=== PATIENT | male | born 1980 | race Caucasian/White ===

== ENCOUNTER 2017-12-16 03:09 | Inpatient (IN) | payer MEDICARE ==
[2017-12-16 03:42] LABS: HEMOGLOBIN 12.8 gm/dL (12-16); RED BLOOD COUNT 4.46 Mil/cmm (4.30-5.70)
[2017-12-16 03:48] LABS: HEMATOCRIT 37.6 % (41.0-60); MEAN CELL VOLUME 84.4 fl (80-99); MEAN CORPUSCULAR HEMOGLOBIN 28.7 pg (26.0-30.0); MEAN PLATELET VOLUME 7.4 fl; PLATELET COUNT 73 Th/cmm (150-400); RED CELL DISTRIBUTION WIDTH 22.8 % (11.5-20.0)
[2017-12-16 03:55] LABS: WHITE BLOOD COUNT 2.4 Th/cmm (4.8-10.8)
[2017-12-16 04:00] LABS: ALB/GLOB RATIO 0.8 (1.0-1.8); ALBUMIN 3.1 gm/dL (4.2-5.5); ALKALINE PHOSPHATASE 103 U/L (34-104); AMYLASE SERUM 78 U/L (29-103); BILIRUBIN,TOTAL 3.8 mg/dL (0.3-1.0); BUN - UREA NITROGEN 4 mg/dL (7-25); CALCIUM SERUM 8.5 mg/dL (8.6-10.3); CHLORIDE 102 mEq/L (98-107); GLUCOSE 121 mg/dL (70-105); LIPASE 92 U/L (11-82); POTASSIUM SERUM 3.8 mEq/L (3.5-5.1); SGOT 88 U/L (13-39); SGPT/ALT 47 U/L (7-52); SODIUM SERUM 133 mEq/L (136-145); TOTAL PROTEIN,SERUM 7.1 gm/dL (6.0-8.3)
[2017-12-16 04:02] LABS: URINE SOURCE RANDOM
[2017-12-16 04:24] LABS: URINE BILIRUBIN NEGATIVE (NEGATIVE); URINE BLOOD NEGATIVE (NEGATIVE); URINE GLUCOSE (UA) NEGATIVE (NEGATIVE); URINE KETONE NEGATIVE (NEGATIVE); URINE LEUKOCYTE ESTERASE NEGATIVE (NEGATIVE); URINE NITRATE NEGATIVE (NEGATIVE); URINE PH 6.5 (4.6 - 8.0); URINE PROTEIN NEGATIVE (NEGATIVE); URINE UROBILINOGEN 0.2 E.U./dL (0.2 - 1.0)
[2017-12-16 04:29] LABS: URINE CLARITY CLEAR (CLEAR); URINE COLOR YELLOW; URINE MICROSCOPIC INDICATED? NO
[2017-12-16 04:35] LABS: AMPHETAMINE URINE NEGATIVE (NEGATIVE); BARBITURATES URINE NEGATIVE (NEGATIVE); BENZODIAZEPINES QUAL URINE POSITIVE (NEGATIVE); CANNABINOID THC NEGATIVE (NEGATIVE); COCAINE METABOLITE QUAL URINE NEGATIVE (NEGATIVE); METHADONE URINE NEGATIVE (NEGATIVE); METHAMPHETAMINES QUAL URINE NEGATIVE (NEGATIVE); OPIATES (MORPHINE) QUAL. URINE NEGATIVE (NEGATIVE); PHENCYCLIDINE (PCP) URINE NEGATIVE (NEGATIVE); TRICYCLICS (TCA) QUAL. URINE NEGATIVE (NEGATIVE)
[2017-12-16 04:57] LABS: BAND NEUTROPHILE 1 % (0-10); NEUTROPHILS 60 % (40-80)
[2017-12-16 04:58] LABS: LYMPHOCYTE 25 % (20-50); MONOCYTE 14 % (2-10); OVALOCYTES 1+; PLATELET ESTIMATE DECREASED PLATELETS (NORMAL)
[2017-12-16 05:11] LABS: ANION GAP 9.2 (7.0-16.0); CARBON DIOXIDE 25.6 mEq/L (21.0-31.0); CREATININE - SERUM 0.7 mg/dL (0.7-1.3); GFR AFRICAN-AMERICAN > 60.0 ml/min (>90); GFR NON AFRICAN-AMERICAN > 60.0 ml/min
--- NOTE | 2017-12-16 06:57 | ED Physician Chart ---
ED Chief Complaint/HPI - Patient Information Date Seen:: 12/16/17 Time Seen:: 03:32 Chief Complaint:: abd pain History of Present Illness:: 37 yr old male with hep c liver dz homeless here for abd pain no vomiting diarhea or sepsis Allergies:: Allergies Allergy/AdvReac Type Severity Reaction Status Date / Time No Known Allergies Allergy Verified 12/16/17 03:21 Vitals:: Vital Signs - 8 hr 12/16/17 12/16/17 03:10 06:35 Temp 97.5 F HR 91 97 RR 16 16 BP 110/69 111/73 O2 Sat % 98 99 ED Review of Systems - Review of Systems General/Constitutional: No fever, No chills, No weight loss, No weakness, No diaphoresis, No edema, No loss of appetite Skin: No skin lesions, No rash, No bruising Head: No headache, No light-headedness Eyes: No loss of vision, No pain, No diplopia ENT: No earache, No nasal drainage, No sore throat, No tinnitus Neck: No neck pain, No swelling, No thyromegaly, No stiffness, No mass noted Cardio Vascular: No chest pain, No palpitations, No PND, No orthopnea, No edema Pulmonary: No SOB, No cough, No sputum, No wheezing GI: No nausea, No vomiting, No diarrhea, No pain, No melena, No hematochezia, No constipation, No hematemesis G/U: No dysuria, No frequency, No hematuria Musculoskeletal: No bone or joint pain, No back pain, No muscle pain Endocrine: No polyuria, No polydipsia Psychiatric: No prior psych history, No depression, No anxiety, No suicidal ideation Hematopoietic: No bruising, No lymphadenopathy Allergic/Immuno: No urticaria, No angioedema Neurological: No syncope, No focal symptoms, No weakness, No paresthesia, No headache, No seizure, No dizziness, No confusion, No vertigo ED Past Medical History - Past Medical History Past Medical History: Other (hep c liver dz) Family Medical History - Family Member Mother History Unknown: Yes ED Physical Exam - Physical Examination General/Constitutional: Awake, Well-developed, well-nourished, Alert, No distress, GCS 15, Non-toxic appearing, Ambulatory Head: Atraumatic Eyes: Lids, conjuctiva normal, PERRL, EOMI Skin: Nl inspection, No rash, No skin lesions, No ecchymosis, Well hydrated, No lymphadenopathy ENMT: External ears, nose nl, Nasal exam nl, Lips, teeth, gums nl Neck: Nontender, Full ROM w/o pain, No JVD, No nuchal rigidity, No bruit, No mass, No stridor Respiratory: Nl effort/Exclusion, Clear to Auscultation, No Wheeze/Rhonchi/Rales Cardio Vascular: RRR, No murmur, gallop, rubs, NL S1 S2 GI: No tenderness/rebounding/guarding, No organomegaly, No hernia, Normal BS's, Nondistended, No mass/bruits, No McBurney tenderness : No CVA tenderness Extremities: No tenderness or effusion, Full ROM, normal strength in all extremities, No edema, Normal digits & nails Neuro/Psych: Alert/oriented, DTR's symmetric, Normal sensory exam, Normal motor strength, Judgement/insight normal, Mood normal, Normal gait, No focal deficits Misc: Normal back, No paraspinal tenderness ED Labs/Radiology/EKG Results - Lab Results Results: Laboratory Tests 12/16/17 12/16/17 12/16/17 03:32 03:32 03:35 WBC 2.4 L* RBC 4.46 Hgb 12.8 Hct 37.6 L MCV 84.4 MCH 28.7 MCHC Differential 34.0 RDW 22.8 H Plt Count 73 L MPV 7.4 Add Manual Diff YES Band Neutrophils % 1 Neutrophils (Manual) 60 Lymphocytes 25 Monocytes 14 H Platelet Estimate DECREASED PLATELETS Ovalocytes 1+ Sodium Potassium Chloride Carbon Dioxide Anion Gap BUN Creatinine Est GFR ( Amer) Est GFR (Non-Af Amer) BUN/Creatinine Ratio Glucose Whole Bld Lactic Acid Calcium Total Bilirubin AST ALT Alkaline Phosphatase Total Protein Albumin Globulin Albumin/Globulin Ratio Amylase Lipase Urine Source RANDOM Urine Color YELLOW Urine Clarity CLEAR Urine pH 6.5 Ur Specific [place] 1.010 Urine Protein NEGATIVE Urine Glucose (UA) NEGATIVE Urine Ketones NEGATIVE Urine Blood NEGATIVE Urine Nitrate NEGATIVE Urine Bilirubin NEGATIVE Urine Urobilinogen 0.2 Ur Leukocyte Esterase NEGATIVE Urine Opiates Screen NEGATIVE Urine Methadone Screen NEGATIVE Ur Barbiturates Screen NEGATIVE Ur Tricyclics Screen NEGATIVE Ur Phencyclidine Scrn NEGATIVE Amphetamines Screen NEGATIVE U Methamphetamines Scrn NEGATIVE U Benzodiazepines Scrn POSITIVE H U Cocaine Metab Screen NEGATIVE U Cannabinoids Screen NEGATIVE 12/16/17 12/16/17 03:35 04:05 WBC RBC Hgb Hct MCV MCH MCHC Differential RDW Plt Count MPV Add Manual Diff Band Neutrophils % Neutrophils (Manual) Lymphocytes Monocytes Platelet Estimate Ovalocytes Sodium 133 L Potassium 3.8 Chloride 102 Carbon Dioxide 25.6 Anion Gap 9.2 BUN 4 L Creatinine 0.7 Est GFR ( Amer) > 60.0 Est GFR (Non-Af Amer) > 60.0 BUN/Creatinine Ratio 5.7 Glucose 121 H Whole Bld Lactic Acid 1.81 Calcium 8.5 L Total Bilirubin 3.8 H AST 88 H ALT 47 Alkaline Phosphatase 103 Total Protein 7.1 Albumin 3.1 L Globulin 4.0 Albumin/Globulin Ratio 0.8 L Amylase 78 Lipase 92 H Urine Source Urine Color Urine Clarity Urine pH Ur Specific [place] Urine Protein Urine Glucose (UA) Urine Ketones Urine Blood Urine Nitrate Urine Bilirubin Urine Urobilinogen Ur Leukocyte Esterase Urine Opiates Screen Urine Methadone Screen Ur Barbiturates Screen Ur Tricyclics Screen Ur Phencyclidine Scrn Amphetamines Screen U Methamphetamines Scrn U Benzodiazepines Scrn U Cocaine Metab Screen U Cannabinoids Screen ED Assessment - Assessment General Assessment: abd pain hep c liver dz abd pain pancytopenia ED Septic Shock - . Is Septic Shock (SBP<90, OR Lactate>4 mmol\L) present?: No - <6hrs of presentation: Vital Signs: Vital Signs - 8 hr 12/16/17 12/16/17 03:10 06:35 Temp 97.5 F HR 91 97 RR 16 16 BP 110/69 111/73 O2 Sat % 98 99 ED Reassessment (Disposition) - Diagnosis Diagnosis:: pancytopenia hep c liver dz abd pain - Patient Disposition Discharge/Transfer:: Acute Care w/in this hosp Admitted to:: Med/Surg Condition at Disposition:: Stable
--- NOTE | 2017-12-16 10:25 | Diagnostic Imaging Report ---
CT abdomen and pelvis without intravenous contrast Indication: Abdominal pain Comparison: None, Technique: Axial images were obtained from the lung bases to the bilateral proximal femurs without IV contrast. Coronal reconstructions were made. total DLP: 631, CTDI10.8 FINDINGS: There is a moderate size right effusion right basal passive atelectatic and consolidative changes. Assessment of the solid organs is limited due to lack of IV contrast. There is cirrhotic appearing liver with diffuse fatty infiltration. No obvious focal lesions. No radiopaque gallstones. Splenomegaly is noted measuring up to 20 cm. There may be prominent varices along the perisplenic lesions. Limited assessment of the pancreas demonstrates no obvious focal lesions. The adrenal glands are poorly visualized on this exam. 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 No hydronephrosis or evidence of renal stones. There is a small fat-containing umbilical hernia. Mesenteric edema and trace fluid is seen within the abdomen and pelvis with gas-filled loops of bowel. The appendix is not visualized and may have been removed. No evidence of free abdominal air. There is a subcutaneous nodule along the infraumbilical region at the midline measuring 2.7 x 2.5 cm. The osseous structures demonstrate no acute abnormalities. Small hiatal hernia is noted. There is mild gynecomastia. IMPRESSION: Cirrhotic appearing liver with fatty infiltration and splenomegaly. There are also probable splenic varices. Please correlate with patient's clinical findings and possible portal hypertension. Edema throughout the mesentery extending to the pelvic fat planes with trace free fluid. This may be sequela patient's hepatocellular disease or other inflammatory processes. Please correlate clinically. Small hiatal hernia. 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 No hydronephrosis or renal stones. Moderate right effusion right basal passive atelectasis and infiltrates. Small fat-containing umbilical hernia. 2.7 x 2.5 cm nodule along the subcutaneous tissues inferior to the umbilicus,etiology uncertain but may represent postinflammatory process. Mild gynecomastia noted.
== END 2017-12-16 09:50 | disposition left against medical advice (07) | DRG 813 ==
LOC: ER 03:09 → MSI 07:15
PROVIDERS: ADMIT Internal Medicine; ATTEND Internal Medicine
DX: D69.6 Thrombocytopenia, unspecified (principal); J90 Pleural effusion, not elsewhere classified; K76.6 Portal hypertension; D72.819 Decreased white blood cell count, unspecified; B19.20 Unspecified viral hepatitis C without hepatic coma; R16.2 Hepatomegaly with splenomegaly, not elsewhere classified; K74.60 Unspecified cirrhosis of liver; Z59.0 Homelessness
CPT/HCPCS: 36415-UA; 80053-TC; 80307; 81003-TC; 82150-TC; 83605; 83690-TC; 85007-TC; 85025-TC; 86703-TC; 93005

== ENCOUNTER 2017-12-17 04:47 | Inpatient (IN) | payer MEDICARE ==
--- NOTE | 2017-12-17 06:44 | ED Physician Chart ---
ED Chief Complaint/HPI - Patient Information Date Seen:: 12/17/17 Time Seen:: 05:40 Chief Complaint:: diarhea History of Present Illness:: 37 yr old with hx of liver dz s/p diarhea smothered in diarhea homeless hx of drug and etoh abuse Allergies:: Allergies Allergy/AdvReac Type Severity Reaction Status Date / Time No Known Allergies Allergy Verified 12/17/17 04:54 Vitals:: Vital Signs - 8 hr 12/17/17 04:50 Temp 98.1 F HR 90 RR 18 BP 132/82 O2 Sat % 100 ED Review of Systems - Review of Systems General/Constitutional: No fever, No chills Skin: No skin lesions Head: No headache Eyes: No loss of vision ENT: No earache Neck: No neck pain Cardio Vascular: No chest pain Pulmonary: No SOB GI: No nausea, No vomiting, Diarrhea G/U: No dysuria Musculoskeletal: No bone or joint pain Endocrine: No polyuria Hematopoietic: No bruising Allergic/Immuno: No urticaria Neurological: No syncope Family Medical History - Family Member Mother History Unknown: Yes ED Septic Shock - . Is Septic Shock (SBP<90, OR Lactate>4 mmol\L) present?: No - <6hrs of presentation: Vital Signs: Vital Signs - 8 hr 12/17/17 04:50 Temp 98.1 F HR 90 RR 18 BP 132/82 O2 Sat % 100 ED Reassessment (Disposition) - Reassessment Reassessment:: diarhea - Aftercare/Follow up Instructions Aftercare/Follow-Up Instructions:: Counseled pt regarding lab results/diagnosis & need follow up - Patient Disposition Discharge/Transfer:: Home Condition at Disposition:: Stable
[2017-12-17 08:08] LABS: MEAN CORPUSCULAR HGB CONC 34.5 pg (28.0-36.0)
[2017-12-17 08:11] LABS: HEMATOCRIT 35.2 % (41.0-60); HEMOGLOBIN 12.2 gm/dL (12-16); MEAN CELL VOLUME 83.2 fl (80-99); MEAN CORPUSCULAR HEMOGLOBIN 28.7 pg (26.0-30.0); MEAN PLATELET VOLUME 6.8 fl; PLATELET COUNT 45 Th/cmm (150-400); RED BLOOD COUNT 4.23 Mil/cmm (4.30-5.70); RED CELL DISTRIBUTION WIDTH 23.4 % (11.5-20.0)
[2017-12-17 08:13] LABS: WHITE BLOOD COUNT 1.7 Th/cmm (4.8-10.8)
[2017-12-17 08:18] LABS: ALB/GLOB RATIO 0.8 (1.0-1.8); ALBUMIN 3.1 gm/dL (4.2-5.5); ALKALINE PHOSPHATASE 118 U/L (34-104); ANION GAP 13.4 (7.0-16.0); BILIRUBIN,TOTAL 3.6 mg/dL (0.3-1.0); BUN - UREA NITROGEN 6 mg/dL (7-25); CALCIUM SERUM 8.5 mg/dL (8.6-10.3); CARBON DIOXIDE 25.2 mEq/L (21.0-31.0); CHLORIDE 105 mEq/L (98-107); CREATININE - SERUM 0.5 mg/dL (0.7-1.3); GFR AFRICAN-AMERICAN > 60.0 ml/min (>90); GFR NON AFRICAN-AMERICAN > 60.0 ml/min; GLUCOSE 131 mg/dL (70-105); POTASSIUM SERUM 3.6 mEq/L (3.5-5.1); SGOT 188 U/L (13-39); SGPT/ALT 70 U/L (7-52); SODIUM SERUM 140 mEq/L (136-145)
[2017-12-17 08:55] LABS: BURR CELLS 1+; EOSINOPHIL 4 % (0-5); LYMPHOCYTE 16 % (20-50); MONOCYTE 12 % (2-10); NEUTROPHILS 68 % (40-80); OVALOCYTES 1+; PLATELET ESTIMATE DECREASED PLATELETS (NORMAL)
[2017-12-17] MEDS: metroNIDAZOLE 500mg/NS 100mL 500 MG/100 ML BAG IV SCH ×3 (09:53→17:01)
[2017-12-17] MEDS: Sodium Chloride 0.9% 1,000 ML IV SCH (09:54)
[2017-12-17] MEDS: Morphine Sulfate 2 mg/mL 1mL Syr IVP PRN ×3 (09:56→20:27)
[2017-12-17] MEDS ORDERED: Sodium Chloride 0.9% 2,000 ML IV ONE (10:27)
[2017-12-17 12:05] VITALS: BP 119/84
--- NOTE | 2017-12-17 13:48 | Consultation ---
Consult Note - Consult Note Service Date: 12/17/17 Referring Physician: Vinny Valentin Consult Note: PHYSICIAN Consultation Note: Date of Admission: 12/17/17 Purpose of Consultation: Diarrhea, acute gastroenteritis. Chief Complaint: Patient HEIDI TANG was admitted to location Medical/ Surgical Unit I with DIARRHEA. History of Present Illness: A past medical history of alcohol abuse presented to ER for her diarrhea. Diarrhea is improved. On initial evaluation, he was afebrile and WBC count was 1700. Past Medical History: Alcohol abuse, may have cirrhosis. Allergies Allergy/AdvReac Type Severity Reaction Status Date / Time No Known Allergies Allergy Verified 12/17/17 04:54 Vital Signs Temp 96.4 F 12/17/17 11:44 Pulse 98 12/17/17 11:44 Resp 18 12/17/17 11:44 BP 119/84 12/17/17 12:05 Pulse Ox 98 12/17/17 11:44 Intake & Output 12/16/17 12/17/17 12/17/17 18:59 06:59 18:59 Intake Total 100 Balance 100 Weight (lbs) 95.708 kg 95.073 kg Intake: Intake, IV Amount 100 metroNIDAZOLE 500mg/NS 100 100mL 500 mg In 100 ml @ 100 mls/hr IV Q6HR [facility] Rx #:[id number] Other: Weight Source Patient stated Laboratory Results - last 24 hr 12/17/17 12/17/17 12/17/17 07:25 07:25 08:09 WBC 1.7 L* RBC 4.23 L Hgb 12.2 Hct 35.2 L MCV 83.2 MCH 28.7 MCHC Differential 34.5 RDW 23.4 H Plt Count 45 L MPV 6.8 Add Manual Diff YES Neutrophils (Manual) 68 Lymphocytes 16 L Monocytes 12 H Eosinophils 4 Platelet Estimate DECREASED PLATELETS Ovalocytes 1+ [place] Cells 1+ Sodium 140 Potassium 3.6 Chloride 105 Carbon Dioxide 25.2 Anion Gap 13.4 BUN 6 L Creatinine 0.5 L Est GFR ( Amer) > 60.0 Est GFR (Non-Af Amer) > 60.0 BUN/Creatinine Ratio 12.0 Glucose 131 H Whole Bld Lactic Acid Calcium 8.5 L Total Bilirubin 3.6 H AST 188 H ALT 70 H Alkaline Phosphatase 118 H Total Protein 7.0 Albumin 3.1 L Globulin 3.9 Albumin/Globulin Ratio 0.8 L HIV 1&2 Antibody Screen NEGATIVE 12/17/17 12/17/17 08:29 10:44 WBC RBC Hgb Hct MCV MCH MCHC Differential RDW Plt Count MPV Add Manual Diff Neutrophils (Manual) Lymphocytes Monocytes Eosinophils Platelet Estimate Ovalocytes [place] Cells Sodium Potassium Chloride Carbon Dioxide Anion Gap BUN Creatinine Est GFR ( Amer) Est GFR (Non-Af Amer) BUN/Creatinine Ratio Glucose Whole Bld Lactic Acid 2.01 H* 2.01 H* Calcium Total Bilirubin AST ALT Alkaline Phosphatase Total Protein Albumin Globulin Albumin/Globulin Ratio HIV 1&2 Antibody Screen Home Medication Medication Instructions Recorded Type NK [No Home Meds] 12/16/17 History Current Medications Generic Name Dose Route Start Last Admin Trade Name Freq PRN Reason Stop Dose Admin Metronidazole 500 mg in 100 mls @ 100 mls/hr 12/17/17 08:42 12/17/17 12:57 Flagyl IV 02/15/18 08:41 100 mls/hr Q6HR ERNESTINE Administration Sodium Chloride 1,000 mls @ 125 mls/hr 12/17/17 08:42 12/17/17 09:54 Nacl 0.9% IV 02/15/18 08:41 125 mls/hr .Q8H ERNESTINE Administration Morphine Sulfate 2 mg 12/17/17 08:42 12/17/17 09:56 Morphine IVP 02/15/18 08:41 2 mg Q4HR PRN Administration Pain (Moderate) Morphine Sulfate 4 mg 12/17/17 08:42 Morphine IVP 02/15/18 08:41 Q4H PRN Pain (Severe) Ondansetron HCl 4 mg 12/17/17 08:42 Zofran IV 02/15/18 08:41 Q6H PRN Nausea / Vomiting Review of Systems: A 12 point ROS was reviewed with the pertinent positive and negatives noted in the HPI. Social History Smoking Status Unknown if ever smoked Drug Use Yes Alcohol Use Yes Physical Exam: in diostress. HEENT: HEAD: NT ND. ORAL CAVITY: Moist, pink tongue EYES: Pallor is present. No icterus. Neck: Supple, no JVD. Cardio: S1 and S2 WNL. Respiratory: Vesicular breath sound no crackles no wheezing. Abdominal: Mildly distended bowel sounds present Genital/Urinary: Deferred. Extremities: No cyanosis, no clubbing no edema Neurological: Alert, awake, oriented 3. Assessment: 1. Pancytopenia most likely due to cirrhosis and splenomegaly 2. Hepatitis C. 3. Alcohol abuse.. Plan: Will continue same treatment. Ultrasound of the abdomen. Hepatitis A, B, and C serology. HIV screen. Thank you, Dr Valentin for involving me in taking care of this patient. Piyush Sanchez Devesh N., M.D. [id number]
--- NOTE | 2017-12-17 16:15 | History & Physical ---
ADMIT DATE: 12/17/2017 CHIEF COMPLAINT: Diarrhea. HISTORY OF PRESENT ILLNESS: This is a 37-year-old homeless male who has a history of diarrhea. The patient denies any fevers or chills. PAST MEDICAL HISTORY: Liver disease and hepatitis C. SOCIAL HISTORY: The patient is alcoholic and drug user. FAMILY HISTORY: Noncontributory. REVIEW OF SYSTEMS: GENERAL: Denies any fevers, any chills. Complains of weakness. CARDIOVASCULAR: Denies chest pain. RESPIRATORY: Denies shortness of breath. GASTROINTESTINAL: Denies nausea, vomiting or abdominal pain. GENITOURINARY: Denies increased frequency or dysuria. NEUROLOGIC: No headache, seizure or syncope. All systems are reviewed and negative. PHYSICAL EXAMINATION: GENERAL: A young male, appears disheveled, in no apparent distress. VITAL SIGNS: Temperature 96.4, heart rate 98, blood pressure 120/79, respirations 18 and O2 98%. HEENT: Head; normocephalic and atraumatic. NECK: Supple. No mass. LUNGS: Clear bilaterally. HEART: Regular rate and rhythm. ABDOMEN: Soft and nontender. LABORATORY DATA: WBC 1.7, H and H 12.2 and 35.2 and platelets 45. Sodium 140, potassium 3.6, chloride 105, BUN 6, creatinine 0.5 and whole lactic acid of 2.01. ASSESSMENT: Diarrhea, leukopenia, lactic acidosis, rule out sepsis, history of hepatitis C, liver disease, history of alcoholism and homelessness. PLAN: The patient to be admitted to the med-surg unit. Keep patient on empiric IV antibiotics. We will collect urine for urinalysis. IV fluids for hydration. We will get Hematology as well as ID consultation on the case. We will continue to monitor this patient. JOB# [id number]
--- NOTE | 2017-12-17 17:49 | History & Physical ---
ADMIT DATE: 12/17/2017 HEMATOLOGY ONCOLOGY CONSULTATION REFERRING PHYSICIAN: Dr. Valentin. REASON FOR CONSULTATION: Thrombocytopenia and leukopenia. HISTORY OF PRESENT ILLNESS: The patient is a 37-year-old homeless male with history of hepatitis C, liver cirrhosis and presented with diarrhea. He was found to have leukopenia and thrombocytopenia; therefore, I was asked to evaluate. PAST MEDICAL HISTORY: Liver cirrhosis secondary to hepatitis C. SOCIAL HISTORY: Alcoholic and drug user. MEDICATIONS: Reviewed. PHYSICAL EXAMINATION: GENERAL: The patient is awake, not in distress, poor hygiene, disheveled. HEENT: Atraumatic. NECK: No lymphadenopathy. CHEST: Equal air entry. ABDOMEN: Soft, distended with dilated veins in the abdominal wall and palpable splenomegaly. LABORATORY DATA: White count 1.7, hemoglobin 12.2, platelet count 45. Chemistry: Bilirubin 3.6. AST, ALT, alkaline phosphatase are all elevated. Creatinine 0.5, lipase 92, albumin 3.1. CT scan of the abdomen was reviewed showing splenomegaly at 20 cm and cirrhotic liver. ASSESSMENT: 1. 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 2. Liver cirrhosis secondary to hepatitis C. The patient is not neutropenic or febrile and will be monitored without Neupogen for now. I will obtain B12, folate level and add thiamine, multivitamin, and folate to his medications. Thank you Dr. Valentin for the opportunity to participate in the care of this interesting case. JOB# [id number]
[2017-12-17] MEDS ORDERED: Potassium Chloride 20 mEq ER Tab PO ONE (18:01)
[2017-12-17 18:15] LABS: AMPHETAMINE URINE NEGATIVE (NEGATIVE); BARBITURATES URINE NEGATIVE (NEGATIVE); BENZODIAZEPINES QUAL URINE POSITIVE (NEGATIVE); CANNABINOID THC NEGATIVE (NEGATIVE); COCAINE METABOLITE QUAL URINE NEGATIVE (NEGATIVE); METHADONE URINE NEGATIVE (NEGATIVE); METHAMPHETAMINES QUAL URINE NEGATIVE (NEGATIVE); OPIATES (MORPHINE) QUAL. URINE POSITIVE (NEGATIVE); PHENCYCLIDINE (PCP) URINE NEGATIVE (NEGATIVE); TRICYCLICS (TCA) QUAL. URINE NEGATIVE (NEGATIVE)
[2017-12-17 19:28] LABS: URINE SOURCE CLEAN C
[2017-12-17 19:32] LABS: URINE BILIRUBIN SMALL (NEGATIVE); URINE BLOOD NEGATIVE (NEGATIVE); URINE GLUCOSE (UA) NEGATIVE (NEGATIVE); URINE KETONE NEGATIVE (NEGATIVE); URINE LEUKOCYTE ESTERASE NEGATIVE (NEGATIVE); URINE MICROSCOPIC INDICATED? YES; URINE NITRATE POSITIVE (NEGATIVE); URINE PROTEIN NEGATIVE (NEGATIVE); URINE UROBILINOGEN 0.2 E.U./dL (0.2 - 1.0)
[2017-12-17 19:36] LABS: URINE CLARITY CLEAR (CLEAR); URINE COLOR YELLOW
[2017-12-17 19:38] LABS: URINE AMORPHOUS SEDIMENT FEW PHOSPHATES (NONE SEEN); URINE BACTERIA 2+ /hpf (NONE SEEN); URINE EPITHELIAL CELLS FEW /lpf (FEW); URINE RBC 0-2 /hpf (0-5)
[2017-12-18] MEDS: metroNIDAZOLE 500mg/NS 100mL 500 MG/100 ML BAG IV SCH ×5 (00:14→23:13)
[2017-12-18] MEDS: Morphine Sulfate 2 mg/mL 1mL Syr IVP PRN ×5 (00:26→20:30)
[2017-12-18 06:11] LABS: HEMATOCRIT 31.2 % (41.0-60); HEMOGLOBIN 10.6 gm/dL (12-16); MEAN CELL VOLUME 84.2 fl (80-99); MEAN CORPUSCULAR HEMOGLOBIN 28.5 pg (26.0-30.0); MEAN CORPUSCULAR HGB CONC 33.8 pg (28.0-36.0); MEAN PLATELET VOLUME 7.4 fl; PLATELET COUNT 33 Th/cmm (150-400); RED BLOOD COUNT 3.71 Mil/cmm (4.30-5.70); RED CELL DISTRIBUTION WIDTH 23.1 % (11.5-20.0)
[2017-12-18 06:27] LABS: ANION GAP 10.1 (7.0-16.0); BUN - UREA NITROGEN 6 mg/dL (7-25); CARBON DIOXIDE 25.6 mEq/L (21.0-31.0); CHLORIDE 102 mEq/L (98-107); CHOLESTEROL 72 mg/dL (<200); CREATININE - SERUM 0.6 mg/dL (0.7-1.3); GFR AFRICAN-AMERICAN > 60.0 ml/min (>90); GFR NON AFRICAN-AMERICAN > 60.0 ml/min; GLUCOSE 110 mg/dL (70-105); HDL -HIGH DENSITY LIPOPROTEIN 26 mg/dL (23-92); POTASSIUM SERUM 3.7 mEq/L (3.5-5.1); SODIUM SERUM 134 mEq/L (136-145); TRIGLYCERIDES 46 mg/dL (<150)
[2017-12-18 06:46] LABS: WHITE BLOOD COUNT 1.4 Th/cmm (4.8-10.8)
[2017-12-18 07:28] LABS: ANISOCYTOSIS 2+; BAND NEUTROPHILE 1 % (0-10); BASOPHIL 0 % (0-3); EOSINOPHIL 2 % (0-5); LYMPHOCYTE 27 % (20-50); MONOCYTE 16 % (2-10); NEUTROPHILS 54 % (40-80); PLATELET ESTIMATE DECREASED PLATELETS (NORMAL)
[2017-12-18 07:29] LABS: OVALOCYTES 1+
[2017-12-18] MEDS: Multivitamin Tab PO SCH (08:33)
--- NOTE | 2017-12-18 08:52 | Diagnostic Imaging Report ---
Ultrasound abdomen HISTORY: Pancytopenia COMPARISON: CT abdomen and pelvis on 12/16/2017 Technique: Sonography of the abdomen was performed in multiple planes. FINDINGS: The liver demonstrates normal echogenicity with no evidence of focal lesions. The liver measures 14.5 cm. Note,, exam is limited due to bowel gas and body habitus. The liver demonstrates a heterogeneous echotexture. The liver margins are not well-defined, limiting assessment for focal lesions. No discrete focal lesions identified. Distended gallbladder is noted. No discrete gallstones. The gallbladder wall is borderline prominent. Small amount of gallbladder sludge is noted. The common bile duct was not visualized. The right kidney measures 10.2 x 5.5 cm. The left kidney measures 10.2 x 5.1 cm the renal margins are not well-defined, however, no evidence of focal lesions or hydronephrosis. The spleen is significantly enlarged measuring 21.1 x 9.5 cm. Assessment of the abdominal aorta is limited on this exam. IMPRESSION: Severe splenomegaly with spleen measuring 21.1 x 9.5 cm, please correlate with physical findings. Distended gallbladder with small amount of gallbladder sludge. Borderline prominent gallbladder wall is noted. Please correlate clinically. The common bile duct was not visualized. Heterogeneous liver which is likely reflective of underlying hepatocellular disease.
[2017-12-18 11:16] LABS: FOLIC ACID 11.4 ng/mL (>3.0)
--- NOTE | 2017-12-18 11:22 | General Progress Note ---
Subjective - Review of Systems Service Date: 12/18/17 Subjective: no bleeding less diarrhea Objective - Results Result Diagrams: 12/18/17 05:25 12/17/17 07:25 Recent Labs: Laboratory Last Values WBC 1.4 Th/cmm (4.8-10.8) L* 12/18/17 05:25 RBC 3.71 Mil/cmm (4.30-5.70) L 12/18/17 05:25 Hgb 10.6 gm/dL (12-16) L 12/18/17 05:25 Hct 31.2 % (41.0-60) L 12/18/17 05:25 MCV 84.2 fl (80-99) 12/18/17 05:25 MCH 28.5 pg (26.0-30.0) 12/18/17 05:25 MCHC Differential 33.8 pg (28.0-36.0) 12/18/17 05:25 RDW 23.1 % (11.5-20.0) H 12/18/17 05:25 Plt Count 33 Th/cmm (150-400) L 12/18/17 05:25 MPV 7.4 fl 12/18/17 05:25 Add Manual Diff YES 12/18/17 05:25 Band Neutrophils % 1 % (0-10) 12/18/17 05:25 Neutrophils (Manual) 54 % (40-80) 12/18/17 05:25 Lymphocytes 27 % (20-50) 12/18/17 05:25 Monocytes 16 % (2-10) H 12/18/17 05:25 Eosinophils 2 % (0-5) 12/18/17 05:25 Basophils 0 % (0-3) 12/18/17 05:25 Platelet Estimate DECREASED PLATELETS (NORMAL) 12/18/17 05:25 Anisocytosis 2+ 12/18/17 05:25 Ovalocytes 1+ 12/18/17 05:25 [place] Cells 1+ 12/17/17 07:25 Sodium 140 mEq/L (136-145) 12/17/17 07:25 Potassium 3.6 mEq/L (3.5-5.1) 12/17/17 07:25 Chloride 105 mEq/L (98-107) 12/17/17 07:25 Carbon Dioxide 25.2 mEq/L (21.0-31.0) 12/17/17 07:25 Anion Gap 13.4 (7.0-16.0) 12/17/17 07:25 BUN 6 mg/dL (7-25) L 12/17/17 07:25 Creatinine 0.5 mg/dL (0.7-1.3) L 12/17/17 07:25 Est GFR ( Amer) > 60.0 ml/min (>90) 12/17/17 07:25 Est GFR (Non-Af Amer) > 60.0 ml/min 12/17/17 07:25 BUN/Creatinine Ratio 12.0 12/17/17 07:25 Glucose 131 mg/dL (70-105) H 12/17/17 07:25 Whole Bld Lactic Acid 2.01 mmol/L (0.60-1.99) H* 12/17/17 10:44 Calcium 8.5 mg/dL (8.6-10.3) L 12/17/17 07:25 Total Bilirubin 3.6 mg/dL (0.3-1.0) H 12/17/17 07:25 AST 188 U/L (13-39) H 12/17/17 07:25 ALT 70 U/L (7-52) H 12/17/17 07:25 Alkaline Phosphatase 118 U/L (34-104) H 12/17/17 07:25 Total Protein 7.0 gm/dL (6.0-8.3) 12/17/17 07:25 Albumin 3.1 gm/dL (4.2-5.5) L 12/17/17 07:25 Globulin 3.9 gm/dL 12/17/17 07:25 Albumin/Globulin Ratio 0.8 (1.0-1.8) L 12/17/17 07:25 Vitamin B12 966 pg/mL (232-1245) 12/17/17 08:09 Folic Acid 11.4 ng/mL (>3.0) 12/17/17 08:09 TSH 1.99 uIU/ml (0.34-5.60) 12/18/17 05:25 Urine Source CLEAN C 12/17/17 17:00 Urine Color YELLOW 12/17/17 17:00 Urine Clarity CLEAR (CLEAR) 12/17/17 17:00 Urine pH 7.0 (4.6 - 8.0) 12/17/17 17:00 Ur Specific [place] 1.020 (1.005-1.030) 12/17/17 17:00 Urine Protein NEGATIVE mg/dL (NEGATIVE) 12/17/17 17:00 Urine Glucose (UA) NEGATIVE mg/dL (NEGATIVE) 12/17/17 17:00 Urine Ketones NEGATIVE mg/dL (NEGATIVE) 12/17/17 17:00 Urine Blood NEGATIVE (NEGATIVE) 12/17/17 17:00 Urine Nitrate POSITIVE (NEGATIVE) H 12/17/17 17:00 Urine Bilirubin SMALL (NEGATIVE) H 12/17/17 17:00 Urine Urobilinogen 0.2 E.U./dL (0.2 - 1.0) 12/17/17 17:00 Ur Leukocyte Esterase NEGATIVE (NEGATIVE) 12/17/17 17:00 Urine RBC 0-2 /hpf (0-5) H 12/17/17 17:00 Urine WBC 2-5 /hpf (0-5) 12/17/17 17:00 Ur Epithelial Cells FEW /lpf (FEW) 12/17/17 17:00 Amorphous Sediment FEW PHOSPHATES (NONE SEEN) 12/17/17 17:00 Urine Bacteria 2+ /hpf (NONE SEEN) H 12/17/17 17:00 Urine Opiates Screen POSITIVE (NEGATIVE) H 12/17/17 17:00 Urine Methadone Screen NEGATIVE (NEGATIVE) 12/17/17 17:00 Ur Barbiturates Screen NEGATIVE (NEGATIVE) 12/17/17 17:00 Ur Tricyclics Screen NEGATIVE (NEGATIVE) 12/17/17 17:00 Ur Phencyclidine Scrn NEGATIVE (NEGATIVE) 12/17/17 17:00 Amphetamines Screen NEGATIVE (NEGATIVE) 12/17/17 17:00 U Methamphetamines Scrn NEGATIVE (NEGATIVE) 12/17/17 17:00 U Benzodiazepines Scrn POSITIVE (NEGATIVE) H 12/17/17 17:00 U Cocaine Metab Screen NEGATIVE (NEGATIVE) 12/17/17 17:00 U Cannabinoids Screen NEGATIVE (NEGATIVE) 12/17/17 17:00 HIV 1&2 Antibody Screen NEGATIVE (NEG) 12/17/17 08:09 - Physical Exam Vitals and I&O: Vital Signs Temp 98.5 F 12/18/17 04:00 Pulse 102 12/18/17 04:00 Resp 17 12/18/17 04:00 BP 122/83 12/18/17 04:00 Pulse Ox 96 12/18/17 04:00 Intake & Output 12/17/17 12/18/17 12/18/17 18:59 06:59 18:59 Intake Total 1800 560 Output Total 950 Balance 1800 -390 Weight (lbs) 95.073 kg 100.698 kg Intake: Intake, IV Amount 300 200 metroNIDAZOLE 500mg/NS 300 200 100mL 500 mg In 100 ml @ 100 mls/hr IV Q6HR [facility] Rx #:[id number] Oral 1500 360 Output: Urine 950 Other: # Voids 5 # Bowel Movements 0 1 Stool Characteristics Liquid Soft Brown Weight Source Bedscale Bedscale Active Medications: Current Medications Metronidazole (Flagyl) 500 mg in 100 mls @ 100 mls/hr IV Q6HR [facility] Stop: 02/15/18 08:41 Last Infusion: 12/18/17 06:32 Dose: Infused Sodium Chloride (Nacl 0.9%) 1,000 mls @ 125 mls/hr IV .Q8H [facility] Stop: 02/15/18 08:41 Last Admin: 12/17/17 09:54 Dose: 125 mls/hr Morphine Sulfate (Morphine) 2 mg IVP Q4HR PRN PRN Reason: Pain (Moderate) Stop: 02/15/18 08:41 Last Admin: 12/18/17 09:38 Dose: 2 mg Morphine Sulfate (Morphine) 4 mg IVP Q4H PRN PRN Reason: Pain (Severe) Stop: 02/15/18 08:41 Multivitamins/Vitamin C (Theragran) 1 tab PO DAILY [facility] Stop: 02/16/18 08:59 Last Admin: 12/18/17 08:33 Dose: 1 tab Ondansetron HCl (Zofran) 4 mg IV Q6H PRN PRN Reason: Nausea / Vomiting Stop: 02/15/18 08:41 Thiamine HCl (Vitamin B1) 100 mg PO DAILY [facility] Stop: 02/16/18 08:59 Last Admin: 12/18/17 08:33 Dose: 100 mg Assessment/Plan - Assessment Assessment: 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 2. Liver cirrhosis secondary to hepatitis C. The patient is not neutropenic or febrile and will be monitored without Neupogen for now. I will obtain B12, folate level and add thiamine, multivitamin, and folate to his medications. 12/18: lab noted and discussed. afebrile no bleeding, monitor for now
--- NOTE | 2017-12-18 11:54 | Internal Medicine Prog Note ---
Internal Medicine Subjective - Subjective Patient seen and examined:: other (chart reviewed still with diarrhea but better ) Patient is:: awake, talking Per staff patient has:: no adverse event Internal Medicine Objective - Results Result Diagrams: 12/18/17 05:25 12/17/17 07:25 Recent Labs: Laboratory Last Values WBC 1.4 Th/cmm (4.8-10.8) L* 12/18/17 05:25 RBC 3.71 Mil/cmm (4.30-5.70) L 12/18/17 05:25 Hgb 10.6 gm/dL (12-16) L 12/18/17 05:25 Hct 31.2 % (41.0-60) L 12/18/17 05:25 MCV 84.2 fl (80-99) 12/18/17 05:25 MCH 28.5 pg (26.0-30.0) 12/18/17 05:25 MCHC Differential 33.8 pg (28.0-36.0) 12/18/17 05:25 RDW 23.1 % (11.5-20.0) H 12/18/17 05:25 Plt Count 33 Th/cmm (150-400) L 12/18/17 05:25 MPV 7.4 fl 12/18/17 05:25 Add Manual Diff YES 12/18/17 05:25 Band Neutrophils % 1 % (0-10) 12/18/17 05:25 Neutrophils (Manual) 54 % (40-80) 12/18/17 05:25 Lymphocytes 27 % (20-50) 12/18/17 05:25 Monocytes 16 % (2-10) H 12/18/17 05:25 Eosinophils 2 % (0-5) 12/18/17 05:25 Basophils 0 % (0-3) 12/18/17 05:25 Platelet Estimate DECREASED PLATELETS (NORMAL) 12/18/17 05:25 Anisocytosis 2+ 12/18/17 05:25 Ovalocytes 1+ 12/18/17 05:25 [place] Cells 1+ 12/17/17 07:25 Sodium 140 mEq/L (136-145) 12/17/17 07:25 Potassium 3.6 mEq/L (3.5-5.1) 12/17/17 07:25 Chloride 105 mEq/L (98-107) 12/17/17 07:25 Carbon Dioxide 25.2 mEq/L (21.0-31.0) 12/17/17 07:25 Anion Gap 13.4 (7.0-16.0) 12/17/17 07:25 BUN 6 mg/dL (7-25) L 12/17/17 07:25 Creatinine 0.5 mg/dL (0.7-1.3) L 12/17/17 07:25 Est GFR ( Amer) > 60.0 ml/min (>90) 12/17/17 07:25 Est GFR (Non-Af Amer) > 60.0 ml/min 12/17/17 07:25 BUN/Creatinine Ratio 12.0 12/17/17 07:25 Glucose 131 mg/dL (70-105) H 12/17/17 07:25 Whole Bld Lactic Acid 2.01 mmol/L (0.60-1.99) H* 12/17/17 10:44 Calcium 8.5 mg/dL (8.6-10.3) L 12/17/17 07:25 Total Bilirubin 3.6 mg/dL (0.3-1.0) H 12/17/17 07:25 AST 188 U/L (13-39) H 12/17/17 07:25 ALT 70 U/L (7-52) H 12/17/17 07:25 Alkaline Phosphatase 118 U/L (34-104) H 12/17/17 07:25 Total Protein 7.0 gm/dL (6.0-8.3) 12/17/17 07:25 Albumin 3.1 gm/dL (4.2-5.5) L 12/17/17 07:25 Globulin 3.9 gm/dL 12/17/17 07:25 Albumin/Globulin Ratio 0.8 (1.0-1.8) L 12/17/17 07:25 Vitamin B12 966 pg/mL (232-1245) 12/17/17 08:09 Folic Acid 11.4 ng/mL (>3.0) 12/17/17 08:09 TSH 1.99 uIU/ml (0.34-5.60) 12/18/17 05:25 Urine Source CLEAN C 12/17/17 17:00 Urine Color YELLOW 12/17/17 17:00 Urine Clarity CLEAR (CLEAR) 12/17/17 17:00 Urine pH 7.0 (4.6 - 8.0) 12/17/17 17:00 Ur Specific [place] 1.020 (1.005-1.030) 12/17/17 17:00 Urine Protein NEGATIVE mg/dL (NEGATIVE) 12/17/17 17:00 Urine Glucose (UA) NEGATIVE mg/dL (NEGATIVE) 12/17/17 17:00 Urine Ketones NEGATIVE mg/dL (NEGATIVE) 12/17/17 17:00 Urine Blood NEGATIVE (NEGATIVE) 12/17/17 17:00 Urine Nitrate POSITIVE (NEGATIVE) H 12/17/17 17:00 Urine Bilirubin SMALL (NEGATIVE) H 12/17/17 17:00 Urine Urobilinogen 0.2 E.U./dL (0.2 - 1.0) 12/17/17 17:00 Ur Leukocyte Esterase NEGATIVE (NEGATIVE) 12/17/17 17:00 Urine RBC 0-2 /hpf (0-5) H 12/17/17 17:00 Urine WBC 2-5 /hpf (0-5) 12/17/17 17:00 Ur Epithelial Cells FEW /lpf (FEW) 12/17/17 17:00 Amorphous Sediment FEW PHOSPHATES (NONE SEEN) 12/17/17 17:00 Urine Bacteria 2+ /hpf (NONE SEEN) H 12/17/17 17:00 Urine Opiates Screen POSITIVE (NEGATIVE) H 12/17/17 17:00 Urine Methadone Screen NEGATIVE (NEGATIVE) 12/17/17 17:00 Ur Barbiturates Screen NEGATIVE (NEGATIVE) 12/17/17 17:00 Ur Tricyclics Screen NEGATIVE (NEGATIVE) 12/17/17 17:00 Ur Phencyclidine Scrn NEGATIVE (NEGATIVE) 12/17/17 17:00 Amphetamines Screen NEGATIVE (NEGATIVE) 12/17/17 17:00 U Methamphetamines Scrn NEGATIVE (NEGATIVE) 12/17/17 17:00 U Benzodiazepines Scrn POSITIVE (NEGATIVE) H 12/17/17 17:00 U Cocaine Metab Screen NEGATIVE (NEGATIVE) 12/17/17 17:00 U Cannabinoids Screen NEGATIVE (NEGATIVE) 12/17/17 17:00 HIV 1&2 Antibody Screen NEGATIVE (NEG) 12/17/17 08:09 - Physical Exam Vitals and I&O: Vital Signs Temp 98.1 F 12/18/17 11:46 Pulse 111 12/18/17 11:46 Resp 18 12/18/17 11:46 BP 136/75 12/18/17 11:46 Pulse Ox 96 12/18/17 11:46 Intake & Output 12/17/17 12/18/17 12/18/17 18:59 06:59 18:59 Intake Total 1800 560 Output Total 950 Balance 1800 -390 Weight (lbs) 95.073 kg 100.698 kg Intake: Intake, IV Amount 300 200 metroNIDAZOLE 500mg/NS 300 200 100mL 500 mg In 100 ml @ 100 mls/hr IV Q6HR [facility] Rx #:[id number] Oral 1500 360 Output: Urine 950 Other: # Voids 5 # Bowel Movements 0 1 Stool Characteristics Liquid Soft Brown Weight Source Bedscale Bedscale Active Medications: Current Medications Metronidazole (Flagyl) 500 mg in 100 mls @ 100 mls/hr IV Q6HR [facility] Stop: 02/15/18 08:41 Last Infusion: 12/18/17 06:32 Dose: Infused Sodium Chloride (Nacl 0.9%) 1,000 mls @ 125 mls/hr IV .Q8H [facility] Stop: 02/15/18 08:41 Last Admin: 12/17/17 09:54 Dose: 125 mls/hr Morphine Sulfate (Morphine) 2 mg IVP Q4HR PRN PRN Reason: Pain (Moderate) Stop: 02/15/18 08:41 Last Admin: 12/18/17 09:38 Dose: 2 mg Morphine Sulfate (Morphine) 4 mg IVP Q4H PRN PRN Reason: Pain (Severe) Stop: 02/15/18 08:41 Multivitamins/Vitamin C (Theragran) 1 tab PO DAILY [facility] Stop: 02/16/18 08:59 Last Admin: 12/18/17 08:33 Dose: 1 tab Ondansetron HCl (Zofran) 4 mg IV Q6H PRN PRN Reason: Nausea / Vomiting Stop: 02/15/18 08:41 Thiamine HCl (Vitamin B1) 100 mg PO DAILY [facility] Stop: 02/16/18 08:59 Last Admin: 12/18/17 08:33 Dose: 100 mg General: weak HEENT: NC/AT Neck: Supple, No JVD Lungs: CTAB Cardiovascular: Normal S1, Normal S2 Abdomen: soft, non-tender Extremities: clear, edema Neurological: no change Internal Medicine Assmt/Plan - Assessment Assessment: 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 - Plan Plan: as per order sheet will monitor
--- NOTE | 2017-12-18 13:26 | Infectious Disease Prog Note ---
Infectious Disease Subjective - Review of Systems Service Date: 12/18/17 Subjective: no new change, no fever. Infectious Disease Objective - Results Result Diagrams: 12/18/17 05:25 12/17/17 07:25 Recent Labs: Laboratory Last Values WBC 1.4 Th/cmm (4.8-10.8) L* 12/18/17 05:25 RBC 3.71 Mil/cmm (4.30-5.70) L 12/18/17 05:25 Hgb 10.6 gm/dL (12-16) L 12/18/17 05:25 Hct 31.2 % (41.0-60) L 12/18/17 05:25 MCV 84.2 fl (80-99) 12/18/17 05:25 MCH 28.5 pg (26.0-30.0) 12/18/17 05:25 MCHC Differential 33.8 pg (28.0-36.0) 12/18/17 05:25 RDW 23.1 % (11.5-20.0) H 12/18/17 05:25 Plt Count 33 Th/cmm (150-400) L 12/18/17 05:25 MPV 7.4 fl 12/18/17 05:25 Add Manual Diff YES 12/18/17 05:25 Band Neutrophils % 1 % (0-10) 12/18/17 05:25 Neutrophils (Manual) 54 % (40-80) 12/18/17 05:25 Lymphocytes 27 % (20-50) 12/18/17 05:25 Monocytes 16 % (2-10) H 12/18/17 05:25 Eosinophils 2 % (0-5) 12/18/17 05:25 Basophils 0 % (0-3) 12/18/17 05:25 Platelet Estimate DECREASED PLATELETS (NORMAL) 12/18/17 05:25 Anisocytosis 2+ 12/18/17 05:25 Ovalocytes 1+ 12/18/17 05:25 [place] Cells 1+ 12/17/17 07:25 Sodium 140 mEq/L (136-145) 12/17/17 07:25 Potassium 3.6 mEq/L (3.5-5.1) 12/17/17 07:25 Chloride 105 mEq/L (98-107) 12/17/17 07:25 Carbon Dioxide 25.2 mEq/L (21.0-31.0) 12/17/17 07:25 Anion Gap 13.4 (7.0-16.0) 12/17/17 07:25 BUN 6 mg/dL (7-25) L 12/17/17 07:25 Creatinine 0.5 mg/dL (0.7-1.3) L 12/17/17 07:25 Est GFR ( Amer) > 60.0 ml/min (>90) 12/17/17 07:25 Est GFR (Non-Af Amer) > 60.0 ml/min 12/17/17 07:25 BUN/Creatinine Ratio 12.0 12/17/17 07:25 Glucose 131 mg/dL (70-105) H 12/17/17 07:25 Whole Bld Lactic Acid 2.01 mmol/L (0.60-1.99) H* 12/17/17 10:44 Calcium 8.5 mg/dL (8.6-10.3) L 12/17/17 07:25 Total Bilirubin 3.6 mg/dL (0.3-1.0) H 12/17/17 07:25 AST 188 U/L (13-39) H 12/17/17 07:25 ALT 70 U/L (7-52) H 12/17/17 07:25 Alkaline Phosphatase 118 U/L (34-104) H 12/17/17 07:25 Total Protein 7.0 gm/dL (6.0-8.3) 12/17/17 07:25 Albumin 3.1 gm/dL (4.2-5.5) L 12/17/17 07:25 Globulin 3.9 gm/dL 12/17/17 07:25 Albumin/Globulin Ratio 0.8 (1.0-1.8) L 12/17/17 07:25 Vitamin B12 966 pg/mL (232-1245) 12/17/17 08:09 Folic Acid 11.4 ng/mL (>3.0) 12/17/17 08:09 TSH 1.99 uIU/ml (0.34-5.60) 12/18/17 05:25 Urine Source CLEAN C 12/17/17 17:00 Urine Color YELLOW 12/17/17 17:00 Urine Clarity CLEAR (CLEAR) 12/17/17 17:00 Urine pH 7.0 (4.6 - 8.0) 12/17/17 17:00 Ur Specific [place] 1.020 (1.005-1.030) 12/17/17 17:00 Urine Protein NEGATIVE mg/dL (NEGATIVE) 12/17/17 17:00 Urine Glucose (UA) NEGATIVE mg/dL (NEGATIVE) 12/17/17 17:00 Urine Ketones NEGATIVE mg/dL (NEGATIVE) 12/17/17 17:00 Urine Blood NEGATIVE (NEGATIVE) 12/17/17 17:00 Urine Nitrate POSITIVE (NEGATIVE) H 12/17/17 17:00 Urine Bilirubin SMALL (NEGATIVE) H 12/17/17 17:00 Urine Urobilinogen 0.2 E.U./dL (0.2 - 1.0) 12/17/17 17:00 Ur Leukocyte Esterase NEGATIVE (NEGATIVE) 12/17/17 17:00 Urine RBC 0-2 /hpf (0-5) H 12/17/17 17:00 Urine WBC 2-5 /hpf (0-5) 12/17/17 17:00 Ur Epithelial Cells FEW /lpf (FEW) 12/17/17 17:00 Amorphous Sediment FEW PHOSPHATES (NONE SEEN) 12/17/17 17:00 Urine Bacteria 2+ /hpf (NONE SEEN) H 12/17/17 17:00 Urine Opiates Screen POSITIVE (NEGATIVE) H 12/17/17 17:00 Urine Methadone Screen NEGATIVE (NEGATIVE) 12/17/17 17:00 Ur Barbiturates Screen NEGATIVE (NEGATIVE) 12/17/17 17:00 Ur Tricyclics Screen NEGATIVE (NEGATIVE) 12/17/17 17:00 Ur Phencyclidine Scrn NEGATIVE (NEGATIVE) 12/17/17 17:00 Amphetamines Screen NEGATIVE (NEGATIVE) 12/17/17 17:00 U Methamphetamines Scrn NEGATIVE (NEGATIVE) 12/17/17 17:00 U Benzodiazepines Scrn POSITIVE (NEGATIVE) H 12/17/17 17:00 U Cocaine Metab Screen NEGATIVE (NEGATIVE) 12/17/17 17:00 U Cannabinoids Screen NEGATIVE (NEGATIVE) 12/17/17 17:00 HIV 1&2 Antibody Screen NEGATIVE (NEG) 12/17/17 08:09 - Physical Exam Vitals and I&O: Vital Signs Temp 98.1 F 12/18/17 11:46 Pulse 111 12/18/17 11:46 Resp 18 12/18/17 11:46 BP 136/75 12/18/17 11:46 Pulse Ox 96 12/18/17 11:46 Intake & Output 12/17/17 12/18/17 12/18/17 18:59 06:59 18:59 Intake Total 1800 560 Output Total 950 Balance 1800 -390 Weight (lbs) 95.073 kg 100.698 kg Intake: Intake, IV Amount 300 200 metroNIDAZOLE 500mg/NS 300 200 100mL 500 mg In 100 ml @ 100 mls/hr IV Q6HR [facility] Rx #:[id number] Oral 1500 360 Output: Urine 950 Other: # Voids 5 # Bowel Movements 0 1 Stool Characteristics Liquid Soft Brown Weight Source Bedscale Bedscale Active Medications: Current Medications Metronidazole (Flagyl) 500 mg in 100 mls @ 100 mls/hr IV Q6HR [facility] Stop: 02/15/18 08:41 Last Infusion: 12/18/17 06:32 Dose: Infused Sodium Chloride (Nacl 0.9%) 1,000 mls @ 125 mls/hr IV .Q8H [facility] Stop: 02/15/18 08:41 Last Admin: 12/17/17 09:54 Dose: 125 mls/hr Morphine Sulfate (Morphine) 2 mg IVP Q4HR PRN PRN Reason: Pain (Moderate) Stop: 02/15/18 08:41 Last Admin: 12/18/17 09:38 Dose: 2 mg Morphine Sulfate (Morphine) 4 mg IVP Q4H PRN PRN Reason: Pain (Severe) Stop: 02/15/18 08:41 Multivitamins/Vitamin C (Theragran) 1 tab PO DAILY [facility] Stop: 02/16/18 08:59 Last Admin: 12/18/17 08:33 Dose: 1 tab Ondansetron HCl (Zofran) 4 mg IV Q6H PRN PRN Reason: Nausea / Vomiting Stop: 02/15/18 08:41 Thiamine HCl (Vitamin B1) 100 mg PO DAILY [facility] Stop: 02/16/18 08:59 Last Admin: 12/18/17 08:33 Dose: 100 mg General: no acute distress, well developed, well nourished HEENT: atraumatic, normocephalic, PERRLA, EOMI Neck: supple, no thyromegaly Cardiovascular: S1S2, regular Lungs: clear to auscultation bilaterally, clear to percussion Abdomen: soft, no tender, no distended Extremities: no cyanosis, no clubbing, no edema Neurological: awake, alert, oriented Skin: intact Infectious Disease Assmt/Plan - Assessment Assessment: 1. Pancytopenia most likely due to cirrhosis and splenomegaly 2. Hepatitis C. 3. Alcohol abuse.. - Plan Plan: CPM.
[2017-12-18] MEDS: Morphine Sulfate 4 mg/mL 1mL Syr IVP PRN (16:44)
[2017-12-18] MEDS: Sodium Chloride 0.9% 1,000 ML IV SCH (23:15)
[2017-12-19] MEDS: Morphine Sulfate 2 mg/mL 1mL Syr IVP PRN ×4 (02:45→16:55)
[2017-12-19] MEDS: metroNIDAZOLE 500mg/NS 100mL 500 MG/100 ML BAG IV SCH ×3 (05:54→16:59)
[2017-12-19] MEDS: Multivitamin Tab PO SCH (08:27)
[2017-12-19 08:51] LABS: HEMATOCRIT 32.7 % (41.0-60); HEMOGLOBIN 11.2 gm/dL (12-16); LYMPHOCYTE ABSOLUTE 0.3 Th/cmm (1.5-3.0); MEAN CELL VOLUME 85.2 fl (80-99); MEAN CORPUSCULAR HEMOGLOBIN 29.1 pg (26.0-30.0); MEAN CORPUSCULAR HGB CONC 34.1 pg (28.0-36.0); MEAN PLATELET VOLUME 6.5 fl; MONOCYTE ABSOLUTE 0.2 Th/cmm (0.3-1.0); NEUTROPHILE ABSOLUTE 0.8 Th/cmm (1.8-8.0); RED BLOOD COUNT 3.84 Mil/cmm (4.30-5.70); RED CELL DISTRIBUTION WIDTH 23.1 % (11.5-20.0)
[2017-12-19 08:54] LABS: WHITE BLOOD COUNT 1.3 Th/cmm (4.8-10.8)
[2017-12-19 08:55] LABS: PLATELET COUNT 34 Th/cmm (150-400)
--- NOTE | 2017-12-19 10:02 | General Progress Note ---
Subjective - Review of Systems Service Date: 12/19/17 Subjective: no bleeding still with diarrhea Objective - Results Result Diagrams: 12/19/17 08:15 12/18/17 05:25 Recent Labs: Laboratory Last Values WBC 1.3 Th/cmm (4.8-10.8) L* 12/19/17 08:15 RBC 3.84 Mil/cmm (4.30-5.70) L 12/19/17 08:15 Hgb 11.2 gm/dL (12-16) L 12/19/17 08:15 Hct 32.7 % (41.0-60) L 12/19/17 08:15 MCV 85.2 fl (80-99) 12/19/17 08:15 MCH 29.1 pg (26.0-30.0) 12/19/17 08:15 MCHC Differential 34.1 pg (28.0-36.0) 12/19/17 08:15 RDW 23.1 % (11.5-20.0) H 12/19/17 08:15 Plt Count 34 Th/cmm (150-400) L 12/19/17 08:15 MPV 6.5 fl 12/19/17 08:15 Add Manual Diff YES 12/19/17 08:15 Band Neutrophils % 1 % (0-10) 12/18/17 05:25 Neutrophils (Manual) 54 % (40-80) 12/18/17 05:25 Lymphocytes 27 % (20-50) 12/18/17 05:25 Monocytes 16 % (2-10) H 12/18/17 05:25 Eosinophils 2 % (0-5) 12/18/17 05:25 Basophils 0 % (0-3) 12/18/17 05:25 Platelet Estimate DECREASED PLATELETS (NORMAL) 12/18/17 05:25 Anisocytosis 2+ 12/18/17 05:25 Ovalocytes 1+ 12/18/17 05:25 [place] Cells 1+ 12/17/17 07:25 Sodium 134 mEq/L (136-145) L 12/18/17 05:25 Potassium 3.7 mEq/L (3.5-5.1) 12/18/17 05:25 Chloride 102 mEq/L (98-107) 12/18/17 05:25 Carbon Dioxide 25.6 mEq/L (21.0-31.0) 12/18/17 05:25 Anion Gap 10.1 (7.0-16.0) 12/18/17 05:25 BUN 6 mg/dL (7-25) L 12/18/17 05:25 Creatinine 0.6 mg/dL (0.7-1.3) L 12/18/17 05:25 Est GFR ( Amer) > 60.0 ml/min (>90) 12/18/17 05:25 Est GFR (Non-Af Amer) > 60.0 ml/min 12/18/17 05:25 BUN/Creatinine Ratio 10.0 12/18/17 05:25 Glucose 110 mg/dL (70-105) H 12/18/17 05:25 Whole Bld Lactic Acid 2.01 mmol/L (0.60-1.99) H* 12/17/17 10:44 Calcium 8.0 mg/dL (8.6-10.3) L 12/18/17 05:25 Total Bilirubin 3.6 mg/dL (0.3-1.0) H 12/17/17 07:25 AST 188 U/L (13-39) H 12/17/17 07:25 ALT 70 U/L (7-52) H 12/17/17 07:25 Alkaline Phosphatase 118 U/L (34-104) H 12/17/17 07:25 Total Protein 7.0 gm/dL (6.0-8.3) 12/17/17 07:25 Albumin 3.1 gm/dL (4.2-5.5) L 12/17/17 07:25 Globulin 3.9 gm/dL 12/17/17 07:25 Albumin/Globulin Ratio 0.8 (1.0-1.8) L 12/17/17 07:25 Triglycerides 46 mg/dL (<150) 12/18/17 05:25 Cholesterol 72 mg/dL (<200) 12/18/17 05:25 LDL Cholesterol Direct 38 mg/dL (75-193) L 12/18/17 05:25 HDL Cholesterol 26 mg/dL (23-92) 12/18/17 05:25 Vitamin B12 966 pg/mL (232-1245) 12/17/17 08:09 Folic Acid 11.4 ng/mL (>3.0) 12/17/17 08:09 TSH 1.99 uIU/ml (0.34-5.60) 12/18/17 05:25 Urine Source CLEAN C 12/17/17 17:00 Urine Color YELLOW 12/17/17 17:00 Urine Clarity CLEAR (CLEAR) 12/17/17 17:00 Urine pH 7.0 (4.6 - 8.0) 12/17/17 17:00 Ur Specific [place] 1.020 (1.005-1.030) 12/17/17 17:00 Urine Protein NEGATIVE mg/dL (NEGATIVE) 12/17/17 17:00 Urine Glucose (UA) NEGATIVE mg/dL (NEGATIVE) 12/17/17 17:00 Urine Ketones NEGATIVE mg/dL (NEGATIVE) 12/17/17 17:00 Urine Blood NEGATIVE (NEGATIVE) 12/17/17 17:00 Urine Nitrate POSITIVE (NEGATIVE) H 12/17/17 17:00 Urine Bilirubin SMALL (NEGATIVE) H 12/17/17 17:00 Urine Urobilinogen 0.2 E.U./dL (0.2 - 1.0) 12/17/17 17:00 Ur Leukocyte Esterase NEGATIVE (NEGATIVE) 12/17/17 17:00 Urine RBC 0-2 /hpf (0-5) H 12/17/17 17:00 Urine WBC 2-5 /hpf (0-5) 12/17/17 17:00 Ur Epithelial Cells FEW /lpf (FEW) 12/17/17 17:00 Amorphous Sediment FEW PHOSPHATES (NONE SEEN) 12/17/17 17:00 Urine Bacteria 2+ /hpf (NONE SEEN) H 12/17/17 17:00 Urine Opiates Screen POSITIVE (NEGATIVE) H 12/17/17 17:00 Urine Methadone Screen NEGATIVE (NEGATIVE) 12/17/17 17:00 Ur Barbiturates Screen NEGATIVE (NEGATIVE) 12/17/17 17:00 Ur Tricyclics Screen NEGATIVE (NEGATIVE) 12/17/17 17:00 Ur Phencyclidine Scrn NEGATIVE (NEGATIVE) 12/17/17 17:00 Amphetamines Screen NEGATIVE (NEGATIVE) 12/17/17 17:00 U Methamphetamines Scrn NEGATIVE (NEGATIVE) 12/17/17 17:00 U Benzodiazepines Scrn POSITIVE (NEGATIVE) H 12/17/17 17:00 U Cocaine Metab Screen NEGATIVE (NEGATIVE) 12/17/17 17:00 U Cannabinoids Screen NEGATIVE (NEGATIVE) 12/17/17 17:00 HIV 1&2 Antibody Screen NEGATIVE (NEG) 12/17/17 08:09 - Physical Exam Vitals and I&O: Vital Signs Temp 98.0 F 12/19/17 08:00 Pulse 101 12/19/17 08:00 Resp 18 12/19/17 08:00 BP 124/75 12/19/17 08:00 Pulse Ox 93 12/19/17 08:00 Intake & Output 12/18/17 12/19/17 12/19/17 18:59 06:59 18:59 Intake Total 500 880 Output Total 510 1400 Balance -10 -520 Weight (lbs) 94.801 kg 96.615 kg Intake: Intake, IV Amount 200 200 metroNIDAZOLE 500mg/NS 200 200 100mL 500 mg In 100 ml @ 100 mls/hr IV Q6HR [facility] Rx #:[id number] Oral 300 680 Output: Urine 510 1400 Other: # Voids 2 Stool Characteristics Soft Brown Weight Source Bedscale Bedscale Active Medications: Current Medications Metronidazole (Flagyl) 500 mg in 100 mls @ 100 mls/hr IV Q6HR [facility] Stop: 02/15/18 08:41 Last Infusion: 12/19/17 06:54 Dose: Infused Sodium Chloride (Nacl 0.9%) 1,000 mls @ 125 mls/hr IV .Q8H [facility] Stop: 02/15/18 08:41 Last Admin: 12/18/17 23:15 Dose: 125 mls/hr Morphine Sulfate (Morphine) 2 mg IVP Q4HR PRN PRN Reason: Pain (Moderate) Stop: 02/15/18 08:41 Last Admin: 12/19/17 08:27 Dose: 2 mg Morphine Sulfate (Morphine) 4 mg IVP Q4H PRN PRN Reason: Pain (Severe) Stop: 02/15/18 08:41 Last Admin: 12/18/17 16:44 Dose: 4 mg Multivitamins/Vitamin C (Theragran) 1 tab PO DAILY [facility] Stop: 02/16/18 08:59 Last Admin: 12/19/17 08:27 Dose: 1 tab Ondansetron HCl (Zofran) 4 mg IV Q6H PRN PRN Reason: Nausea / Vomiting Stop: 02/15/18 08:41 Quetiapine Fumarate (Seroquel) 25 mg PO DAILY [facility]; Protocol Stop: 02/17/18 08:59 Thiamine HCl (Vitamin B1) 100 mg PO DAILY [facility] Stop: 02/16/18 08:59 Last Admin: 12/19/17 08:27 Dose: 100 mg Assessment/Plan - Assessment Assessment: Thrombocytopenia and leukopenia secondary to hypersplenism. 2. Liver cirrhosis secondary to hepatitis C. The patient is not neutropenic or febrile and will be monitored without Neupogen for now. I will obtain B12, folate level and add thiamine, multivitamin, and folate to his medications. 12/18: lab noted and discussed. afebrile no bleeding, monitor for now 12/19: cytopenia persistent sec to hypersplenism. No bleeding . Continue to monitor without transfusion
[2017-12-19 10:08] LABS: BAND NEUTROPHILE 3 % (0-10); EOSINOPHIL 3 % (0-5); LYMPHOCYTE 16 % (20-50); MONOCYTE 11 % (2-10); NEUTROPHILS 67 % (40-80); PLATELET ESTIMATE DECREASED PLATELETS (NORMAL)
[2017-12-19 10:09] LABS: ANISOCYTOSIS 2+
--- NOTE | 2017-12-19 11:56 | Internal Medicine Prog Note ---
Internal Medicine Subjective - Subjective Patient seen and examined:: chart reviewed Patient is:: awake, talking, other (still with some diarrhea today ) Per staff patient has:: no adverse event Internal Medicine Objective - Results Result Diagrams: 12/19/17 08:15 12/18/17 05:25 Recent Labs: Laboratory Last Values WBC 1.3 Th/cmm (4.8-10.8) L* 12/19/17 08:15 RBC 3.84 Mil/cmm (4.30-5.70) L 12/19/17 08:15 Hgb 11.2 gm/dL (12-16) L 12/19/17 08:15 Hct 32.7 % (41.0-60) L 12/19/17 08:15 MCV 85.2 fl (80-99) 12/19/17 08:15 MCH 29.1 pg (26.0-30.0) 12/19/17 08:15 MCHC Differential 34.1 pg (28.0-36.0) 12/19/17 08:15 RDW 23.1 % (11.5-20.0) H 12/19/17 08:15 Plt Count 34 Th/cmm (150-400) L 12/19/17 08:15 MPV 6.5 fl 12/19/17 08:15 Add Manual Diff YES 12/19/17 08:15 Band Neutrophils % 3 % (0-10) 12/19/17 08:15 Neutrophils (Manual) 67 % (40-80) 12/19/17 08:15 Lymphocytes 16 % (20-50) L 12/19/17 08:15 Monocytes 11 % (2-10) H 12/19/17 08:15 Eosinophils 3 % (0-5) 12/19/17 08:15 Basophils 0 % (0-3) 12/18/17 05:25 Platelet Estimate DECREASED PLATELETS (NORMAL) 12/19/17 08:15 Anisocytosis 2+ 12/19/17 08:15 Ovalocytes 1+ 12/18/17 05:25 [place] Cells 1+ 12/17/17 07:25 Sodium 134 mEq/L (136-145) L 12/18/17 05:25 Potassium 3.7 mEq/L (3.5-5.1) 12/18/17 05:25 Chloride 102 mEq/L (98-107) 12/18/17 05:25 Carbon Dioxide 25.6 mEq/L (21.0-31.0) 12/18/17 05:25 Anion Gap 10.1 (7.0-16.0) 12/18/17 05:25 BUN 6 mg/dL (7-25) L 12/18/17 05:25 Creatinine 0.6 mg/dL (0.7-1.3) L 12/18/17 05:25 Est GFR ( Amer) > 60.0 ml/min (>90) 12/18/17 05:25 Est GFR (Non-Af Amer) > 60.0 ml/min 12/18/17 05:25 BUN/Creatinine Ratio 10.0 12/18/17 05:25 Glucose 110 mg/dL (70-105) H 12/18/17 05:25 Whole Bld Lactic Acid 2.01 mmol/L (0.60-1.99) H* 12/17/17 10:44 Calcium 8.0 mg/dL (8.6-10.3) L 12/18/17 05:25 Total Bilirubin 3.6 mg/dL (0.3-1.0) H 12/17/17 07:25 AST 188 U/L (13-39) H 12/17/17 07:25 ALT 70 U/L (7-52) H 12/17/17 07:25 Alkaline Phosphatase 118 U/L (34-104) H 12/17/17 07:25 Total Protein 7.0 gm/dL (6.0-8.3) 12/17/17 07:25 Albumin 3.1 gm/dL (4.2-5.5) L 12/17/17 07:25 Globulin 3.9 gm/dL 12/17/17 07:25 Albumin/Globulin Ratio 0.8 (1.0-1.8) L 12/17/17 07:25 Triglycerides 46 mg/dL (<150) 12/18/17 05:25 Cholesterol 72 mg/dL (<200) 12/18/17 05:25 LDL Cholesterol Direct 38 mg/dL (75-193) L 12/18/17 05:25 HDL Cholesterol 26 mg/dL (23-92) 12/18/17 05:25 Vitamin B12 966 pg/mL (232-1245) 12/17/17 08:09 Folic Acid 11.4 ng/mL (>3.0) 12/17/17 08:09 TSH 1.99 uIU/ml (0.34-5.60) 12/18/17 05:25 Urine Source CLEAN C 12/17/17 17:00 Urine Color YELLOW 12/17/17 17:00 Urine Clarity CLEAR (CLEAR) 12/17/17 17:00 Urine pH 7.0 (4.6 - 8.0) 12/17/17 17:00 Ur Specific [place] 1.020 (1.005-1.030) 12/17/17 17:00 Urine Protein NEGATIVE mg/dL (NEGATIVE) 12/17/17 17:00 Urine Glucose (UA) NEGATIVE mg/dL (NEGATIVE) 12/17/17 17:00 Urine Ketones NEGATIVE mg/dL (NEGATIVE) 12/17/17 17:00 Urine Blood NEGATIVE (NEGATIVE) 12/17/17 17:00 Urine Nitrate POSITIVE (NEGATIVE) H 12/17/17 17:00 Urine Bilirubin SMALL (NEGATIVE) H 12/17/17 17:00 Urine Urobilinogen 0.2 E.U./dL (0.2 - 1.0) 12/17/17 17:00 Ur Leukocyte Esterase NEGATIVE (NEGATIVE) 12/17/17 17:00 Urine RBC 0-2 /hpf (0-5) H 12/17/17 17:00 Urine WBC 2-5 /hpf (0-5) 12/17/17 17:00 Ur Epithelial Cells FEW /lpf (FEW) 12/17/17 17:00 Amorphous Sediment FEW PHOSPHATES (NONE SEEN) 12/17/17 17:00 Urine Bacteria 2+ /hpf (NONE SEEN) H 12/17/17 17:00 Urine Opiates Screen POSITIVE (NEGATIVE) H 12/17/17 17:00 Urine Methadone Screen NEGATIVE (NEGATIVE) 12/17/17 17:00 Ur Barbiturates Screen NEGATIVE (NEGATIVE) 12/17/17 17:00 Ur Tricyclics Screen NEGATIVE (NEGATIVE) 12/17/17 17:00 Ur Phencyclidine Scrn NEGATIVE (NEGATIVE) 12/17/17 17:00 Amphetamines Screen NEGATIVE (NEGATIVE) 12/17/17 17:00 U Methamphetamines Scrn NEGATIVE (NEGATIVE) 12/17/17 17:00 U Benzodiazepines Scrn POSITIVE (NEGATIVE) H 12/17/17 17:00 U Cocaine Metab Screen NEGATIVE (NEGATIVE) 12/17/17 17:00 U Cannabinoids Screen NEGATIVE (NEGATIVE) 12/17/17 17:00 HIV 1&2 Antibody Screen NEGATIVE (NEG) 12/17/17 08:09 - Physical Exam Vitals and I&O: Vital Signs Temp 98.7 F 12/19/17 11:45 Pulse 101 12/19/17 11:45 Resp 18 12/19/17 11:45 BP 131/112 12/19/17 11:45 Pulse Ox 100 12/19/17 11:45 Intake & Output 12/18/17 12/19/17 12/19/17 18:59 06:59 18:59 Intake Total 500 880 Output Total 510 1400 Balance -10 -520 Weight (lbs) 94.801 kg 96.615 kg Intake: Intake, IV Amount 200 200 metroNIDAZOLE 500mg/NS 200 200 100mL 500 mg In 100 ml @ 100 mls/hr IV Q6HR [facility] Rx #:[id number] Oral 300 680 Output: Urine 510 1400 Other: # Voids 2 Stool Characteristics Soft Brown Weight Source Bedscale Bedscale Active Medications: Current Medications Metronidazole (Flagyl) 500 mg in 100 mls @ 100 mls/hr IV Q6HR [facility] Stop: 02/15/18 08:41 Last Infusion: 12/19/17 06:54 Dose: Infused Sodium Chloride (Nacl 0.9%) 1,000 mls @ 125 mls/hr IV .Q8H [facility] Stop: 02/15/18 08:41 Last Admin: 12/18/17 23:15 Dose: 125 mls/hr Lorazepam (Ativan) 2 mg IVP Q4HR PRN; Protocol PRN Reason: Anxiety Stop: 02/17/18 11:49 Morphine Sulfate (Morphine) 2 mg IVP Q4HR PRN PRN Reason: Pain (Moderate) Stop: 02/15/18 08:41 Last Admin: 12/19/17 08:27 Dose: 2 mg Morphine Sulfate (Morphine) 4 mg IVP Q4H PRN PRN Reason: Pain (Severe) Stop: 02/15/18 08:41 Last Admin: 12/18/17 16:44 Dose: 4 mg Multivitamins/Vitamin C (Theragran) 1 tab PO DAILY [facility] Stop: 02/16/18 08:59 Last Admin: 12/19/17 08:27 Dose: 1 tab Ondansetron HCl (Zofran) 4 mg IV Q6H PRN PRN Reason: Nausea / Vomiting Stop: 02/15/18 08:41 Quetiapine Fumarate (Seroquel) 25 mg PO DAILY [facility]; Protocol Stop: 02/17/18 08:59 Thiamine HCl (Vitamin B1) 100 mg PO DAILY [facility] Stop: 02/16/18 08:59 Last Admin: 12/19/17 08:27 Dose: 100 mg General: weak HEENT: NC/AT Neck: Supple, No JVD Lungs: CTAB Cardiovascular: Normal S1, Normal S2 Abdomen: soft, non-tender Extremities: clear, edema Neurological: no change Internal Medicine Assmt/Plan - Assessment Assessment: 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 - Plan Plan: as per order sheet will monitor
[2017-12-19] MEDS: Morphine Sulfate 4 mg/mL 1mL Syr IVP PRN (21:42)
[2017-12-20] MEDS: metroNIDAZOLE 500mg/NS 100mL 500 MG/100 ML BAG IV SCH ×2 (00:36→06:15)
[2017-12-20] MEDS: Sodium Chloride 0.9% 1,000 ML IV SCH ×2 (00:59→09:04)
--- NOTE | 2017-12-20 02:14 | Consultation ---
DATE OF CONSULTATION: 12/19/2017 HISTORY OF PRESENT ILLNESS: A 37-year-old male with history of hepatitis C, liver cirrhosis presenting with diarrhea, also with leukopenia, thrombocytopenia. On [id number], the patient well oriented. States he is here because of abdominal pain, diarrhea. States he has cirrhosis and hep C. The patient denying any overt sadness. No overt anxiety, just mostly complaining of pain. He attests to fair sleep. The patient denying any hopeless thoughts, hoping to get better. PAST PSYCHIATRIC HISTORY: Denies any history of being diagnosed with bipolar or schizophrenia. He denies any suicide history. FAMILY HISTORY: Noncontributory. SOCIAL HISTORY: Born in [place]. No family here. States he is homeless. Substances of abuse alcohol daily, 2 pints, plus some beers daily. No use of heroin for one month. Past use of cocaine, current use of THC. MENTAL STATUS EXAMINATION: Unkempt, disheveled, fair eye contact. AO to name, place, situation, month, year. Mood "okay." Just pain. Affect flat. Thought processes were linear. No SI, no HI, no intent, no plan. No psychotic symptoms. Insight and judgment questionable given his drug use. Poor impulse control, questionable given his drug use. PROVISIONAL DIAGNOSES: Alcohol use disorder, severe; opiate use disorder, severe; cocaine use disorder, unspecified; THC use disorder, unspecified; anxiety, unspecified. Under medical, please see full H and P. RECOMMENDATIONS AND PLAN: We will continue to monitor for any signs and symptoms of alcohol withdrawal. The patient is mildly tachycardic. We will initiate Ativan p.r.n. for withdrawal management. JOB# [id number]
[2017-12-20] MEDS: Morphine Sulfate 2 mg/mL 1mL Syr IVP PRN ×3 (02:24→10:52)
[2017-12-20 05:27] LABS: HEMOGLOBIN 10.2 gm/dL (12-16)
[2017-12-20 05:57] LABS: HEMATOCRIT 30.5 % (41.0-60); MEAN CELL VOLUME 85.5 fl (80-99); MEAN CORPUSCULAR HEMOGLOBIN 28.6 pg (26.0-30.0); MEAN CORPUSCULAR HGB CONC 33.5 pg (28.0-36.0); MEAN PLATELET VOLUME 8.1 fl; PLATELET COUNT 39 Th/cmm (150-400); RED BLOOD COUNT 3.57 Mil/cmm (4.30-5.70); RED CELL DISTRIBUTION WIDTH 22.8 % (11.5-20.0)
[2017-12-20 06:03] LABS: WHITE BLOOD COUNT 1.3 Th/cmm (4.8-10.8)
[2017-12-20 06:45] LABS: BAND NEUTROPHILE 2 % (0-10); BASOPHIL 0 % (0-3); EOSINOPHIL 2 % (0-5); LYMPHOCYTE 24 % (20-50); MONOCYTE 14 % (2-10); NEUTROPHILS 58 % (40-80); PLATELET ESTIMATE DECREASED PLATELETS (NORMAL)
[2017-12-20] MEDS: Multivitamin Tab PO SCH (09:43)
--- NOTE | 2017-12-20 12:16 | Internal Medicine Prog Note ---
Internal Medicine Subjective - Subjective Service Date: 12/20/17 Patient is:: awake, talking, other Per staff patient has:: no adverse event Internal Medicine Objective - Results Result Diagrams: 12/20/17 05:18 12/18/17 05:25 Recent Labs: Laboratory Last Values WBC 1.3 Th/cmm (4.8-10.8) L* 12/20/17 05:18 RBC 3.57 Mil/cmm (4.30-5.70) L 12/20/17 05:18 Hgb 10.2 gm/dL (12-16) L 12/20/17 05:18 Hct 30.5 % (41.0-60) L 12/20/17 05:18 MCV 85.5 fl (80-99) 12/20/17 05:18 MCH 28.6 pg (26.0-30.0) 12/20/17 05:18 MCHC Differential 33.5 pg (28.0-36.0) 12/20/17 05:18 RDW 22.8 % (11.5-20.0) H 12/20/17 05:18 Plt Count 39 Th/cmm (150-400) L 12/20/17 05:18 MPV 8.1 fl 12/20/17 05:18 Add Manual Diff YES 12/20/17 05:18 Band Neutrophils % 2 % (0-10) 12/20/17 05:18 Neutrophils (Manual) 58 % (40-80) 12/20/17 05:18 Lymphocytes 24 % (20-50) 12/20/17 05:18 Monocytes 14 % (2-10) H 12/20/17 05:18 Eosinophils 2 % (0-5) 12/20/17 05:18 Basophils 0 % (0-3) 12/20/17 05:18 Platelet Estimate DECREASED PLATELETS (NORMAL) 12/20/17 05:18 Anisocytosis 2+ 12/19/17 08:15 Ovalocytes 1+ 12/18/17 05:[address] Cells 1+ 12/17/17 07:25 Sodium 134 mEq/L (136-145) L 12/18/17 05:25 Potassium 3.7 mEq/L (3.5-5.1) 12/18/17 05:25 Chloride 102 mEq/L (98-107) 12/18/17 05:25 Carbon Dioxide 25.6 mEq/L (21.0-31.0) 12/18/17 05:25 Anion Gap 10.1 (7.0-16.0) 12/18/17 05:25 BUN 6 mg/dL (7-25) L 12/18/17 05:25 Creatinine 0.6 mg/dL (0.7-1.3) L 12/18/17 05:25 Est GFR ( Amer) > 60.0 ml/min (>90) 12/18/17 05:25 Est GFR (Non-Af Amer) > 60.0 ml/min 12/18/17 05:25 BUN/Creatinine Ratio 10.0 12/18/17 05:25 Glucose 110 mg/dL (70-105) H 12/18/17 05:25 Whole Bld Lactic Acid 2.01 mmol/L (0.60-1.99) H* 12/17/17 10:44 Calcium 8.0 mg/dL (8.6-10.3) L 12/18/17 05:25 Total Bilirubin 3.6 mg/dL (0.3-1.0) H 12/17/17 07:25 AST 188 U/L (13-39) H 12/17/17 07:25 ALT 70 U/L (7-52) H 12/17/17 07:25 Alkaline Phosphatase 118 U/L (34-104) H 12/17/17 07:25 Total Protein 7.0 gm/dL (6.0-8.3) 12/17/17 07:25 Albumin 3.1 gm/dL (4.2-5.5) L 12/17/17 07:25 Globulin 3.9 gm/dL 12/17/17 07:25 Albumin/Globulin Ratio 0.8 (1.0-1.8) L 12/17/17 07:25 Triglycerides 46 mg/dL (<150) 12/18/17 05:25 Cholesterol 72 mg/dL (<200) 12/18/17 05:25 LDL Cholesterol Direct 38 mg/dL (75-193) L 12/18/17 05:25 HDL Cholesterol 26 mg/dL (23-92) 12/18/17 05:25 Vitamin B12 966 pg/mL (232-1245) 12/17/17 08:09 Folic Acid 11.4 ng/mL (>3.0) 12/17/17 08:09 TSH 1.99 uIU/ml (0.34-5.60) 12/18/17 05:25 Urine Source CLEAN C 12/17/17 17:00 Urine Color YELLOW 12/17/17 17:00 Urine Clarity CLEAR (CLEAR) 12/17/17 17:00 Urine pH 7.0 (4.6 - 8.0) 12/17/17 17:00 Ur Specific [place] 1.020 (1.005-1.030) 12/17/17 17:00 Urine Protein NEGATIVE mg/dL (NEGATIVE) 12/17/17 17:00 Urine Glucose (UA) NEGATIVE mg/dL (NEGATIVE) 12/17/17 17:00 Urine Ketones NEGATIVE mg/dL (NEGATIVE) 12/17/17 17:00 Urine Blood NEGATIVE (NEGATIVE) 12/17/17 17:00 Urine Nitrate POSITIVE (NEGATIVE) H 12/17/17 17:00 Urine Bilirubin SMALL (NEGATIVE) H 12/17/17 17:00 Urine Urobilinogen 0.2 E.U./dL (0.2 - 1.0) 12/17/17 17:00 Ur Leukocyte Esterase NEGATIVE (NEGATIVE) 12/17/17 17:00 Urine RBC 0-2 /hpf (0-5) H 12/17/17 17:00 Urine WBC 2-5 /hpf (0-5) 12/17/17 17:00 Ur Epithelial Cells FEW /lpf (FEW) 12/17/17 17:00 Amorphous Sediment FEW PHOSPHATES (NONE SEEN) 12/17/17 17:00 Urine Bacteria 2+ /hpf (NONE SEEN) H 12/17/17 17:00 Urine Opiates Screen POSITIVE (NEGATIVE) H 12/17/17 17:00 Urine Methadone Screen NEGATIVE (NEGATIVE) 12/17/17 17:00 Ur Barbiturates Screen NEGATIVE (NEGATIVE) 12/17/17 17:00 Ur Tricyclics Screen NEGATIVE (NEGATIVE) 12/17/17 17:00 Ur Phencyclidine Scrn NEGATIVE (NEGATIVE) 12/17/17 17:00 Amphetamines Screen NEGATIVE (NEGATIVE) 12/17/17 17:00 U Methamphetamines Scrn NEGATIVE (NEGATIVE) 12/17/17 17:00 U Benzodiazepines Scrn POSITIVE (NEGATIVE) H 12/17/17 17:00 U Cocaine Metab Screen NEGATIVE (NEGATIVE) 12/17/17 17:00 U Cannabinoids Screen NEGATIVE (NEGATIVE) 12/17/17 17:00 HIV 1&2 Antibody Screen NEGATIVE (NEG) 12/17/17 08:09 - Physical Exam Vitals and I&O: Vital Signs Temp 98.0 F 12/20/17 11:10 Pulse 87 12/20/17 11:10 Resp 18 12/20/17 11:10 BP 106/60 12/20/17 11:10 Pulse Ox 100 12/20/17 11:10 Intake & Output 12/19/17 12/20/17 12/20/17 18:59 06:59 18:59 Intake Total 9572 457 7644 Balance 8017 908 1270 Weight (lbs) 213 lb Intake: Intake, IV Amount 3971 885 5016 Sodium Chloride 0.9% 1, 1000 1000 000 ml @ 125 mls/hr IV . Q8H [facility] Rx#:[id number] metroNIDAZOLE 500mg/NS 200 100 100mL 500 mg In 100 ml @ 100 mls/hr IV Q6HR [facility] Rx #:[id number] Oral 680 Other: Weight Source Bedscale Active Medications: Current Medications Metronidazole (Flagyl) 500 mg in 100 mls @ 100 mls/hr IV Q6HR [facility] Stop: 02/15/18 08:41 Last Admin: 12/20/17 06:15 Dose: 100 mls/hr Sodium Chloride (Nacl 0.9%) 1,000 mls @ 125 mls/hr IV .Q8H [facility] Stop: 02/15/18 08:41 Last Admin: 12/20/17 09:04 Dose: 125 mls/hr Lorazepam (Ativan) 2 mg IVP Q4HR PRN; Protocol PRN Reason: Anxiety Stop: 02/17/18 11:49 Morphine Sulfate (Morphine) 2 mg IVP Q4HR PRN PRN Reason: Pain (Moderate) Stop: 02/15/18 08:41 Last Admin: 12/20/17 10:52 Dose: 2 mg Morphine Sulfate (Morphine) 4 mg IVP Q4H PRN PRN Reason: Pain (Severe) Stop: 02/15/18 08:41 Last Admin: 12/19/17 21:42 Dose: 4 mg Multivitamins/Vitamin C (Theragran) 1 tab PO DAILY [facility] Stop: 02/16/18 08:59 Last Admin: 12/20/17 09:43 Dose: 1 tab Ondansetron HCl (Zofran) 4 mg IV Q6H PRN PRN Reason: Nausea / Vomiting Stop: 02/15/18 08:41 Quetiapine Fumarate (Seroquel) 25 mg PO DAILY [facility]; Protocol Stop: 02/17/18 08:59 Last Admin: 12/20/17 09:44 Dose: 25 mg Thiamine HCl (Vitamin B1) 100 mg PO DAILY [facility] Stop: 02/16/18 08:59 Last Admin: 12/20/17 09:43 Dose: 100 mg General: weak HEENT: NC/AT Neck: Supple, No JVD Lungs: CTAB Cardiovascular: Normal S1, Normal S2 Abdomen: soft, non-tender Extremities: clear, edema Neurological: no change Internal Medicine Assmt/Plan - Assessment Assessment: 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 - Plan Plan: follow up labs in am fall precautions continue current plan of care
--- NOTE | 2017-12-20 12:45 | Infectious Disease Prog Note ---
Infectious Disease Subjective - Review of Systems Service Date: 12/20/17 Subjective: no new change, no fever. Infectious Disease Objective - Results Result Diagrams: 12/20/17 05:18 12/18/17 05:25 Recent Labs: Laboratory Last Values WBC 1.3 Th/cmm (4.8-10.8) L* 12/20/17 05:18 RBC 3.57 Mil/cmm (4.30-5.70) L 12/20/17 05:18 Hgb 10.2 gm/dL (12-16) L 12/20/17 05:18 Hct 30.5 % (41.0-60) L 12/20/17 05:18 MCV 85.5 fl (80-99) 12/20/17 05:18 MCH 28.6 pg (26.0-30.0) 12/20/17 05:18 MCHC Differential 33.5 pg (28.0-36.0) 12/20/17 05:18 RDW 22.8 % (11.5-20.0) H 12/20/17 05:18 Plt Count 39 Th/cmm (150-400) L 12/20/17 05:18 MPV 8.1 fl 12/20/17 05:18 Add Manual Diff YES 12/20/17 05:18 Band Neutrophils % 2 % (0-10) 12/20/17 05:18 Neutrophils (Manual) 58 % (40-80) 12/20/17 05:18 Lymphocytes 24 % (20-50) 12/20/17 05:18 Monocytes 14 % (2-10) H 12/20/17 05:18 Eosinophils 2 % (0-5) 12/20/17 05:18 Basophils 0 % (0-3) 12/20/17 05:18 Platelet Estimate DECREASED PLATELETS (NORMAL) 12/20/17 05:18 Anisocytosis 2+ 12/19/17 08:15 Ovalocytes 1+ 12/18/17 05:25 [place] Cells 1+ 12/17/17 07:25 Sodium 134 mEq/L (136-145) L 12/18/17 05:25 Potassium 3.7 mEq/L (3.5-5.1) 12/18/17 05:25 Chloride 102 mEq/L (98-107) 12/18/17 05:25 Carbon Dioxide 25.6 mEq/L (21.0-31.0) 12/18/17 05:25 Anion Gap 10.1 (7.0-16.0) 12/18/17 05:25 BUN 6 mg/dL (7-25) L 12/18/17 05:25 Creatinine 0.6 mg/dL (0.7-1.3) L 12/18/17 05:25 Est GFR ( Amer) > 60.0 ml/min (>90) 12/18/17 05:25 Est GFR (Non-Af Amer) > 60.0 ml/min 12/18/17 05:25 BUN/Creatinine Ratio 10.0 12/18/17 05:25 Glucose 110 mg/dL (70-105) H 12/18/17 05:25 Whole Bld Lactic Acid 2.01 mmol/L (0.60-1.99) H* 12/17/17 10:44 Calcium 8.0 mg/dL (8.6-10.3) L 12/18/17 05:25 Total Bilirubin 3.6 mg/dL (0.3-1.0) H 12/17/17 07:25 AST 188 U/L (13-39) H 12/17/17 07:25 ALT 70 U/L (7-52) H 12/17/17 07:25 Alkaline Phosphatase 118 U/L (34-104) H 12/17/17 07:25 Total Protein 7.0 gm/dL (6.0-8.3) 12/17/17 07:25 Albumin 3.1 gm/dL (4.2-5.5) L 12/17/17 07:25 Globulin 3.9 gm/dL 12/17/17 07:25 Albumin/Globulin Ratio 0.8 (1.0-1.8) L 12/17/17 07:25 Triglycerides 46 mg/dL (<150) 12/18/17 05:25 Cholesterol 72 mg/dL (<200) 12/18/17 05:25 LDL Cholesterol Direct 38 mg/dL (75-193) L 12/18/17 05:25 HDL Cholesterol 26 mg/dL (23-92) 12/18/17 05:25 Vitamin B12 966 pg/mL (232-1245) 12/17/17 08:09 Folic Acid 11.4 ng/mL (>3.0) 12/17/17 08:09 TSH 1.99 uIU/ml (0.34-5.60) 12/18/17 05:25 Urine Source CLEAN C 12/17/17 17:00 Urine Color YELLOW 12/17/17 17:00 Urine Clarity CLEAR (CLEAR) 12/17/17 17:00 Urine pH 7.0 (4.6 - 8.0) 12/17/17 17:00 Ur Specific [place] 1.020 (1.005-1.030) 12/17/17 17:00 Urine Protein NEGATIVE mg/dL (NEGATIVE) 12/17/17 17:00 Urine Glucose (UA) NEGATIVE mg/dL (NEGATIVE) 12/17/17 17:00 Urine Ketones NEGATIVE mg/dL (NEGATIVE) 12/17/17 17:00 Urine Blood NEGATIVE (NEGATIVE) 12/17/17 17:00 Urine Nitrate POSITIVE (NEGATIVE) H 12/17/17 17:00 Urine Bilirubin SMALL (NEGATIVE) H 12/17/17 17:00 Urine Urobilinogen 0.2 E.U./dL (0.2 - 1.0) 12/17/17 17:00 Ur Leukocyte Esterase NEGATIVE (NEGATIVE) 12/17/17 17:00 Urine RBC 0-2 /hpf (0-5) H 12/17/17 17:00 Urine WBC 2-5 /hpf (0-5) 12/17/17 17:00 Ur Epithelial Cells FEW /lpf (FEW) 12/17/17 17:00 Amorphous Sediment FEW PHOSPHATES (NONE SEEN) 12/17/17 17:00 Urine Bacteria 2+ /hpf (NONE SEEN) H 12/17/17 17:00 Urine Opiates Screen POSITIVE (NEGATIVE) H 12/17/17 17:00 Urine Methadone Screen NEGATIVE (NEGATIVE) 12/17/17 17:00 Ur Barbiturates Screen NEGATIVE (NEGATIVE) 12/17/17 17:00 Ur Tricyclics Screen NEGATIVE (NEGATIVE) 12/17/17 17:00 Ur Phencyclidine Scrn NEGATIVE (NEGATIVE) 12/17/17 17:00 Amphetamines Screen NEGATIVE (NEGATIVE) 12/17/17 17:00 U Methamphetamines Scrn NEGATIVE (NEGATIVE) 12/17/17 17:00 U Benzodiazepines Scrn POSITIVE (NEGATIVE) H 12/17/17 17:00 U Cocaine Metab Screen NEGATIVE (NEGATIVE) 12/17/17 17:00 U Cannabinoids Screen NEGATIVE (NEGATIVE) 12/17/17 17:00 HIV 1&2 Antibody Screen NEGATIVE (NEG) 12/17/17 08:09 - Physical Exam Vitals and I&O: Vital Signs Temp 98.0 F 12/20/17 11:10 Pulse 87 12/20/17 11:10 Resp 18 12/20/17 11:10 BP 106/60 12/20/17 11:10 Pulse Ox 100 12/20/17 11:10 Intake & Output 12/19/17 12/20/17 12/20/17 18:59 06:59 18:59 Intake Total 9253 190 7746 Balance 0258 477 7165 Weight (lbs) 96.615 kg Intake: Intake, IV Amount 9342 026 9624 Sodium Chloride 0.9% 1, 1000 1000 000 ml @ 125 mls/hr IV . Q8H [facility] Rx#:[id number] metroNIDAZOLE 500mg/NS 200 100 100mL 500 mg In 100 ml @ 100 mls/hr IV Q6HR [facility] Rx #:[id number] Oral 680 Other: Weight Source Bedscale Active Medications: Current Medications Metronidazole (Flagyl) 500 mg in 100 mls @ 100 mls/hr IV Q6HR [facility] Stop: 02/15/18 08:41 Last Admin: 12/20/17 06:15 Dose: 100 mls/hr Sodium Chloride (Nacl 0.9%) 1,000 mls @ 125 mls/hr IV .Q8H [facility] Stop: 02/15/18 08:41 Last Admin: 12/20/17 09:04 Dose: 125 mls/hr Lorazepam (Ativan) 2 mg IVP Q4HR PRN; Protocol PRN Reason: Anxiety Stop: 02/17/18 11:49 Morphine Sulfate (Morphine) 2 mg IVP Q4HR PRN PRN Reason: Pain (Moderate) Stop: 02/15/18 08:41 Last Admin: 12/20/17 10:52 Dose: 2 mg Morphine Sulfate (Morphine) 4 mg IVP Q4H PRN PRN Reason: Pain (Severe) Stop: 02/15/18 08:41 Last Admin: 12/19/17 21:42 Dose: 4 mg Multivitamins/Vitamin C (Theragran) 1 tab PO DAILY [facility] Stop: 02/16/18 08:59 Last Admin: 12/20/17 09:43 Dose: 1 tab Ondansetron HCl (Zofran) 4 mg IV Q6H PRN PRN Reason: Nausea / Vomiting Stop: 02/15/18 08:41 Quetiapine Fumarate (Seroquel) 25 mg PO DAILY [facility]; Protocol Stop: 02/17/18 08:59 Last Admin: 12/20/17 09:44 Dose: 25 mg Thiamine HCl (Vitamin B1) 100 mg PO DAILY [facility] Stop: 02/16/18 08:59 Last Admin: 12/20/17 09:43 Dose: 100 mg General: no acute distress, well developed, well nourished HEENT: atraumatic, normocephalic, PERRLA Neck: supple, no thyromegaly Cardiovascular: S1S2, regular Lungs: clear to auscultation bilaterally, clear to percussion Infectious Disease Assmt/Plan - Assessment Assessment: 1. Pancytopenia most likely due to cirrhosis and splenomegaly 2. Hepatitis C. 3. Alcohol abuse.. - Plan Plan: CPM.
--- NOTE | 2017-12-21 06:45 | Progress Notes ---
DATE: 12/20/2017 HISTORY OF PRESENT ILLNESS: The patient is a 37-year-old male who states that he will accept going to nursing home facility. Less pain. States he is feeling physically better. Mood "okay." . No depression. No melancholy. Sleeping well. States he is hopeful, motivated, and optimistic. PAST MEDICAL HISTORY: Noted. SOCIAL HISTORY: Noted on initial psych eval. MENTAL STATUS EXAMINATION: Fair ADLs. Mood "better." Affect constricted. Thought processes were linear. No SI. No HI. No intent. No plan. No psychosis. Insight fair. Judgment fair. The patient motivated for ongoing treatment. Does not want to relapse of the alcohol. Vitals were also reviewed. No hypertension. No tachycardia. No tremors on exam. No anxiety noted. No perceptual disturbances. PROVISIONAL DIAGNOSIS: No change. ASSESSMENT: The patient seems to be safely withdrawing from alcohol. PLAN: We will continue to monitor. The patient stabilizing in regards to any withdrawal symptoms from alcohol. JOB# [id number]
== END 2017-12-20 12:45 | DRG 815 ==
LOC: ER 04:47 → MSI 08:08
PROVIDERS: ADMIT Internal Medicine; ATTEND Internal Medicine
DX: D73.1 Hypersplenism (principal); D61.818 Other pancytopenia; E87.2 Acidosis; F11.20 Opioid dependence, uncomplicated; K52.9 Noninfective gastroenteritis and colitis, unspecified; B19.20 Unspecified viral hepatitis C without hepatic coma; K74.60 Unspecified cirrhosis of liver; E86.0 Dehydration; F10.20 Alcohol dependence, uncomplicated; F41.9 Anxiety disorder, unspecified; F14.10 Cocaine abuse, uncomplicated; F12.10 Cannabis abuse, uncomplicated; Z59.0 Homelessness; Z86.19 Personal history of other infectious and parasitic diseases
CPT/HCPCS: 36415-UA; 76700-TC; 80048-TC; 80053-TC; 80061-TC; 80307; 81001-TC; 82607-90; 82746-90; 83605; 84443-TC; 85007-TC; 85025-TC; 86703-TC; 87046-90; 87086-90; 87230-TC; 87389-90; 90799; J2270; J7030; Z7610